=== PATIENT | female | born 2000 | race Hispanic/Latino ===

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

== ENCOUNTER 2024-07-05 00:33 | Emergency (ER) | payer OTHER, SELFPAY ==
--- OUTSIDE RECORDS SUMMARY | 2024-07-05 00:43 | XMS REPORT | Continuity of Care Document ---
Author Name Unknown Address [address] [place] [address] [facility] Address [address] [place] [address] Care Team Providers Care Section Housekeeper Name Role Phone Gwendolyn Kylah CADENA Primary Care Physician SHANNON CHEEMA Attending Clinician Unavailable Doctor Unassigned, [place] Attending Clinician U ROSITA Hartman Attending Clinician Shannon Schmidt Attending Clinician [phone] Rosita Kumar CNM Attending Clinician [phone] Visit, [facility] Nurse Attending Clinician UnaLIZBETH Hinojosa Attending Clinician UnavailLizbeth Allison MD Attending Clinician [phone] Franklin RIVERA, Kieran Horne Attending Clinician [phone] Thi RIVERA, Loni Attending Clinician [phone] DILMA HERNANDEZ Attending Clinician Unavailable Brock MITCHELL, Rosita Marie Attending Clinician [phone] Kirti WHJayson ARAUZ Attending Clinician + [phone], [facility] Attending Clinician Unavailab le JAYSON COTTO Attending Clinician Unavail able Doctor Unassigned, [place] Attending Clinician U navailable Elise Toussaint Attending Clinician [phone] ELISE NOGUERA Attending Clinician Unavailable LIZBETH JENKINS Admitting Clinician UnavailLizbeth Allison MD Admitting Clinician [phone] Payers Payer Name Policy Type Policy Number Effective Date Expirati on Date Source Problems Condition Name Condition Details Condition Category Status Onset Date Resolution Date Last Treatment Date Treating Clinician Comments Source Acute blood loss anemia Acute blood loss anemia Disease Active 8 00:00: 00 [facility] [place]cl[place] Disease Active 8 00:00: 00 [facility] Decreased platelet count Decreased platelet count Disease Active 8 00:00: 00 [facility] Papanicola ou smear of cervix with 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 4 LGSIL with +HPV, repeat 1 year see external records [facility] Overweight (BMI 25.0-29.9) Overweight (BMI 25.0-29.9) Disease Active 5 00:00: 00 [facility] No known active problems No known active problems Disease [facility] Anemia, Anemia, Disease Resolve d 8 00:00: 00 2024-01-11 00:00:00 2024-01-11 15:38:55 [facility] Obesity (BMI 30-39.9) Obesity (BMI 30-39.9) Disease Resolve d 2023-0 7-31 00:00: 00 2024-01-11 00:00:00 2024-01-11 15:38:18 [facility] (spontaneo us vaginal delivery) (spontaneo us vaginal delivery) Disease Resolve d 2023-0 8-02 00:00: 00 2023-12-21 00:00:00 2023-12-21 10:39:44 [facility] Single live Single live Disease Resolve d 2023-0 8-02 00:00: 00 2023-12-21 00:00:00 2023-12-21 10:39:45 [facility] Obstetrica l laceration Obstetrica l laceration Disease Resolve d 2023-0 8-02 00:00: 00 2023-12-21 00:00:00 2023-12-21 10:39:32 [facility] 40 weeks gestation of 40 weeks gestation of Disease Resolve d 2023-0 7-31 00:00: 00 2023-12-21 00:00:00 2023-12-21 10:39:41 [facility] Supervisio n of high risk in second trimester Supervisio n of high risk in second trimester Disease Resolve d 2023-0 5-14 00:00: 00 2023-12-21 00:00:00 2023-12-21 10:39:40 Overview: Formattin g of this note might be different from the original. External records:0 06/16/2023 NIPT low risk, MSAFP neg2023 LGSIL with +HPV, repeat 1 glucose 1 hour 113 [facility] Anemia of mother in , antepartum Anemia of mother in , antepartum Disease Resolve d 2023-0 5-08 00:00: 00 2023-12-21 00:00:00 2023-12-21 10:39:37 [facility] Rubella non-immune status, antepartum Rubella non-immune status, antepartum Disease Resolve d 09-05 00:00: 00 2023-12-21 00:00:00 2023-12-21 10:39:39 [facility] Obesity affecting in third trimester Obesity affecting in third trimester Disease Resolve d 5-07 00:00: 00 2023-12-21 00:00:00 2023-12-21 10:39:33 [facility] Uterine size-date discrepanc y in third trimester Uterine size-date discrepanc y in third trimester Disease Resolve d 6-18 00:00: 00 2023-11-14 00:00:00 2023-11-14 19:04:29 [facility] Allergies, Adverse Reactions, Alerts Allergy Name Allergy Type Status Severity Reaction(s) Onset Date Inactive Date Treating Clinician Comments Source NO KNOWN ALLERGIE S Drug Class Active [facility] Social History Social Habit Start Date Stop Date Quantity Comments Source ASSERTION 2023-03-08 00:00:00 [facility] Exposure to SARS-CoV-2 (event) Not sure [facility] intake 2024-01-11 00:00:00 2024-01-11 00:00:00 Lifetime non-drinker (finding) [facility] Tobacco use and exposure 2023-11-29 00:00:00 2023-11-29 00:00:00 Smokeless tobacco non-user [facility] History of Social function 2023-09-05 00:00:00 2023-09-05 00:00:00 [facility] Sex assigned at 2000 00:00:00 2000 00:00:00 [facility] Smoking Status Start Date Stop Date Source Never smoked tobacco [facility] Tobacco smoking consumption unknown [facility] Medications Ordered Medication Name Filled Medication Name Start Date Stop Date Current Medication? Ordering Clinician Indication Dosage Frequency Signature (SIG) Comments Components Source [id number] fum-folic 27 mg iron- 1 mg folic tablet 11-30 00:00: 00 Yes [id number] 1{tbl} Take 1 tablet by mouth in the morning. [facility] docusate 100 mg capsule 11-30 00:00: 00 Yes [id number] 200mg Take 2 capsules by mouth once daily as needed for Constipati on. [facility] ferrous sulfate 325 mg (65 mg iron) tablet 11-30 00:00: 00 Yes [id number] 325mg Take 1 tablet by mouth in the morning. [facility] ibuprofen 800 mg tablet 11-30 00:00: 00 Yes [id number] 800mg Take 1 tablet by mouth every 8 (eight) hours as needed (pain). Take with food or milk. [facility] rho(D) immune globulin (RHOPHYLAC) injection 300 mcg 11-29 17:37: 35 Yes 300ug [facility] ibuprofen (IBU) tablet 600 mg 11-29 17:37: 31 Yes 600mg 600 mg, Oral, Q6HPRN, Starting on Mon11/30/23 at 1237, Until Discontinu ed, Routine, Pain (scale 4-6) [facility] acetaminoph en (TYLENOL) tablet 650 mg 11-29 17:37: 31 Yes 650mg [facility] diphenhydrA MINE (BENADRYL) tablet 25 mg 11-29 17:37: 31 Yes 25mg [facility] ondansetron (ZOFRAN (PF)) injection 4 mg 11-29 17:37: 31 Yes 4mg [facility] simethicone (GAS RELIEF (SIMETHICON E)) chewable tablet 160 mg 11-29 17:37: 31 Yes 160mg [facility] docusate (COLACE) capsule 200 mg 11-29 17:37: 31 Yes 200mg 200 mg, Oral, QDAILYPRN, Starting on Mon11/30/23 at 1237, Until Discontinu ed, Routine, Constipati on [facility] magnesium hydroxide (MILK OF MAGNESIA) 400 mg/5 mL suspension 30 mL 11-29 17:37: 31 Yes 30mL [facility] benzocaine- menthol (DERMOPLAST ) 20-0.5 % topical spray 11-29 17:37: 31 Yes Topical, PRN, Starting on Mon11/30/23 at 1237, Until Discontinu ed, Routine, Perineum discomfort [facility] ondansetron (ZOFRAN (PF)) injection 4 mg 11-29 13:00: 00 11-29 12:41 :00 No 4mg 4 mg, Slow IV Push, ONCE, On Mon11/30/23 at 0800, For 1 dose, Doses of ondansetro n 16 mg and above need to be administer ed via IV piggyback. For Dose >=24mg ECG monitoring is advisable. [facility] oxytocin (PITOCIN) 30 units in NS 500 mL IV infusion 11-29 11:10: 54 11-29 17:37 :34 No 2mU/min at 2-40 mL/hr, IV Infusion, TITRATE, Starting on Mon11/30/23 at 0610, Until Kiersten 11/30/23 at 1237, MARIAM [facility] ropivacaine 0.2 % (NAROPIN (PF)) epidural infusion 11-29 05:12: 00 11-29 15:34 :19 No Epidural, CONTINUOUS PRN, Starting on Mon11/30/23 at 0012, Until Kiersten 11/30/23 at 1034, Routine, Intra-op [facility] lidocaine-e pinephrine (XYLOCAINE W/EPINEPHRI NE) 1.5 %-1:200,000 injection 11-29 05:10: 00 11-29 15:34 :19 No Epidural, ONCE INTRA PROCEDURE, Starting on Mon11/30/23 at 0010, Until Mon11/30/23 at 1034, Routine, Intra-op [facility] morphine (2 mg/mL) injection 4 mg 11-28 21:45: 00 11-28 20:57 :00 No 4mg 4 mg, Slow IV Push, ONCE, 1 dose, On Mon11/29/23 at 1645, Routine [facility] sodium citrate-cit noni acid (BICITRA) 500-334 mg/5 mL solution 30 mL 11-28 19:27: 21 11-29 04:47 :00 No 30mL 30 mL, Oral, PRE-PROCED URE ONCE, 1 dose, Starting on Mon11/29/23 at 1427, Until Mon11/29/23 at 2347, Routine, Surgery/Pr ocedure [facility] lactated ringers IV infusion 500 mL 11-28 19:25: 41 11-29 17:37 :34 No 500mL at 999 mL/hr, 500 mL, IV Infusion, PRN - SEE INSTRUCTIO NS, Starting on Mon11/29/23 at 1425, Until Kiersten 11/30/23 at 1237, Routine [facility] [id number] IV infusion 1,000 mL 11-28 19:25: 41 11-29 17:37 :34 No 1000mL at 1-125 mL/hr, IV Infusion, TITRATE, Starting on Mon11/29/23 at 1425, Until Kiersten 11/30/23 at 1237, Routine [facility] fluconazole (DIFLUCAN) 150 mg tablet 09-06 00:00: 00 09-07 04:59 :00 No [id number] 150mg Take 1 tablet by mouth once now for 1 dose. [facility] Iron Fum & P-FA-Vit B & C No.9 (INTEGRA PLUS) 125 mg iron- 1 mg Cap 09-05 00:00: 00 11-30 00:00 :00 No [id number] 1{capsu le} Take 1 capsule by mouth in the morning. [facility] metronidazo le 0.75 % (37.5 mg/5 gram) vaginal gel 07-19 00:00: 00 Yes 1(37.5m g/5 gram) Ernseto Cevallos metronidazo le 500 mg tablet 07-16 00:00: 00 Yes 1mg Ernesto Cevallos TAKE 1 TABLET TWICE DAILY. 2023-0 5-16 00:00: 00 09-07 00:00 :00 No 100 Ernesto Cevallos No known medications No Un masha [facility] Immunizations Ordered Immunization Name Filled Immunization Name Date Status Comments Source TDAP 2023-09-05 00:00:00 Completed [facility] Influenza Virus Vaccine Quad .5 mL IM 6+ MO (FLUZONE/FLULAVAL/FL UARIX) 2019-02-28 00:00:00 Completed Meningococcal B, OMV 2019-02-28 00:00:00 Completed Influenza Virus Vaccine Quad .5 mL IM 6+ MO (FLUZONE/FLULAVAL/FL UARIX) 2019-02-28 00:00:00 Completed Meningococcal B, OMV 2019-02-28 00:00:00 Completed Influenza Virus Vaccine Quad .5 mL IM 6+ MO (FLUZONE/FLULAVAL/FL UARIX) 2018-02-28 00:00:00 Completed Meningococcal Polysaccharide (groups A, C, Y and W-135) conjugate vaccine (MCV4P) 2018-02-28 00:00:00 Completed Influenza Virus Vaccine Quad .5 mL IM 6+ MO (FLUZONE/FLULAVAL/FL UARIX) 2018-02-28 00:00:00 Completed Meningococcal Polysaccharide (groups A, C, Y and W-135) conjugate vaccine (MCV4P) 2018-02-28 00:00:00 Completed Influenza Virus Vaccine Quad .5 mL IM 6+ MO (FLUZONE/FLULAVAL/FL UARIX) 2017-02-08 00:00:00 Completed Influenza Virus Vaccine Quad .5 mL IM 6+ MO (FLUZONE/FLULAVAL/FL UARIX) 2017-02-08 00:00:00 Completed HPV9 2016-11-23 00:00:00 Completed HPV9 2016-11-23 00:00:00 Completed Influenza Virus Vaccine Quad .5 mL IM 6+ MO (FLUZONE/FLULAVAL/FL UARIX) 2016-02-17 00:00:00 Completed HPV9 2016-02-17 00:00:00 Completed Influenza Virus Vaccine Quad .5 mL IM 6+ MO (FLUZONE/FLULAVAL/FL UARIX) 2016-02-17 00:00:00 Completed HPV9 2016-02-17 00:00:00 Completed Influenza Virus Vaccine Quad .5 mL IM 6+ MO (FLUZONE/FLULAVAL/FL UARIX) 2015-02-27 00:00:00 Completed Influenza Virus Vaccine Quad .5 mL IM 6+ MO (FLUZONE/FLULAVAL/FL UARIX) 2015-02-27 00:00:00 Completed Flu Whole Virus 2014-01-29 00:00:00 Completed Flu Whole Virus 2014-01-29 00:00:00 Completed TDAP 2013-11-20 00:00:00 Completed Meningococcal Polysaccharide (groups A, C, Y and W-135) conjugate vaccine (MCV4P) 2013-11-20 00:00:00 Completed TDAP 2013-11-20 00:00:00 Completed [facility] Meningococcal Polysaccharide (groups A, C, Y and W-135) conjugate vaccine (MCV4P) 2013-11-20 00:00:00 Completed Varicella (varivax)(chicken pox) 2012-02-29 00:00:00 Completed Varicella (varivax)(chicken pox) 2012-02-29 00:00:00 Completed Influenza, split virus, trivalent, PF (AFLURIA/FLUARIX/FLU LAVAL/FLUZONE) 2011-02-17 00:00:00 Completed Influenza, split virus, trivalent, PF (AFLURIA/FLUARIX/FLU LAVAL/FLUZONE) 2011-02-17 00:00:00 Completed Influenza Virus Vaccine - Whole 2007-05-22 00:00:00 Completed Influenza Virus Vaccine - Whole 2007-05-22 00:00:00 Completed Influenza Virus Vaccine - Whole 2007-04-20 00:00:00 Completed Influenza Virus Vaccine - Whole 2007-04-20 00:00:00 Completed DTaP, Unspecified Formulation 2005-11-08 00:00:00 Completed HEPATITIS A 2005-11-08 00:00:00 Completed MMR 2005-11-08 00:00:00 Completed IPV 2005-11-08 00:00:00 Completed DTaP, Unspecified Formulation 2005-11-08 00:00:00 Completed HEPATITIS A 2005-11-08 00:00:00 Completed MMR 2005-11-08 00:00:00 Completed IPV 2005-11-08 00:00:00 Completed Pneumococcal 7 Conjugate, PCV7 (Prevnar7) 2004-12-22 00:00:00 Completed Pneumococcal 7 Conjugate, PCV7 (Prevnar7) 2004-12-22 00:00:00 Completed HEPATITIS A 2004-12-16 00:00:00 Completed HEPATITIS A 2004-12-16 00:00:00 Completed DTaP, Unspecified Formulation 2003-01-06 00:00:00 Completed DTaP, Unspecified Formulation 2003-01-06 00:00:00 Completed HIB 4 Dose Schedule 2002-10-09 00:00:00 Completed MMR 2002-10-09 00:00:00 Completed Varicella (varivax)(chicken pox) 2002-10-09 00:00:00 Completed HIB 4 Dose Schedule 2002-10-09 00:00:00 Completed MMR 2002-10-09 00:00:00 Completed Varicella (varivax)(chicken pox) 2002-10-09 00:00:00 Completed IPV 2002-08-28 00:00:00 Completed IPV 2002-08-28 00:00:00 Completed DTaP, Unspecified Formulation 2002-04-15 00:00:00 Completed Hep B, Adol or Pedi Dosage 2002-04-15 00:00:00 Completed HIB 4 Dose Schedule 2002-04-15 00:00:00 Completed DTaP, Unspecified Formulation 2002-04-15 00:00:00 Completed Hep B, Adol or Pedi Dosage 2002-04-15 00:00:00 Completed HIB 4 Dose Schedule 2002-04-15 00:00:00 Completed DTaP, Unspecified Formulation 2002-02-12 00:00:00 Completed HIB 4 Dose Schedule 2002-02-12 00:00:00 Completed IPV 2002-02-12 00:00:00 Completed DTaP, Unspecified Formulation 2002-02-12 00:00:00 Completed HIB 4 Dose Schedule 2002-02-12 00:00:00 Completed IPV 2002-02-12 00:00:00 Completed DTaP, Unspecified Formulation 2001 00:00:00 Completed Hep B, Adol or Pedi Dosage 2001 00:00:00 Completed HIB 4 Dose Schedule 2001 00:00:00 Completed IPV 2001 00:00:00 Completed DTaP, Unspecified Formulation 2001 00:00:00 Completed Hep B, Adol or Pedi Dosage 2001 00:00:00 Completed HIB 4 Dose Schedule 2001 00:00:00 Completed IPV 2001 00:00:00 Completed Hep B, Adol or Pedi Dosage 2001 00:00:00 Completed Hep B, Adol or Pedi Dosage 2001 00:00:00 Completed Varicella (varivax)(chicken pox) Unknown Completed [facility] TDAP Unknown Completed [facility] DTaP, Unspecified Formulation Unknown Completed [facility] Influenza Virus Vaccine Quad .5 mL IM 6+ MO (FLUZONE/FLULAVAL/FL UARIX) Unknown Completed [facility] Influenza Virus Vaccine - Whole Unknown Completed [facility] Flu Trivalent Unknown Completed [facility] Flu Whole Virus Unknown Completed [facility] TDAP Unknown Completed [facility] HEPATITIS A Unknown Completed [facility] Hep B, Adol or Pedi Dosage Unknown Completed [facility] HIB 4 Dose Schedule Unknown Completed [facility] HPV9 Unknown Completed [facility] Meningococcal Polysaccharide (groups A, C, Y and W-135) conjugate vaccine (MCV4P) Unknown Completed [facility] Meningococcal B, OMV Unknown Completed [facility] MMR Unknown Completed [facility] Pneumococcal 7 Conjugate, PCV7 (Prevnar7) Unknown Completed [facility] IPV Unknown Completed [facility] Varicella (varivax)(chicken pox) Unknown Completed [facility] TDAP Unknown Completed [facility] DTaP, Unspecified Formulation Unknown Completed [facility] Influenza Virus Vaccine Quad .5 mL IM 6+ MO (FLUZONE/FLULAVAL/FL UARIX) Unknown Completed [facility] Influenza Virus Vaccine - Whole Unknown Completed [facility] Flu Trivalent Unknown Completed [facility] Flu Whole Virus Unknown Completed [facility] HEPATITIS A Unknown Completed [facility] Hep B, Adol or Pedi Dosage Unknown Completed [facility] HIB 4 Dose Schedule Unknown Completed [facility] HPV9 Unknown Completed [facility] Meningococcal Polysaccharide (groups A, C, Y and W-135) conjugate vaccine (MCV4P) Unknown Completed [facility] Meningococcal B, OMV Unknown Completed [facility] MMR Unknown Completed [facility] Pneumococcal 7 Conjugate, PCV7 (Prevnar7) Unknown Completed [facility] IPV Unknown Completed [facility] Varicella (varivax)(chicken pox) Unknown Completed [facility] TDAP Unknown Completed [facility] DTaP, Unspecified Formulation Unknown Completed [facility] Influenza Virus Vaccine Quad .5 mL IM 6+ MO (FLUZONE/FLULAVAL/FL UARIX) Unknown Completed [facility] Influenza Virus Vaccine - Whole Unknown Completed [facility] Influenza, split virus, trivalent, PF (AFLURIA/FLUARIX/FLU LAVAL/FLUZONE) Unknown Completed [facility] Flu Whole Virus Unknown Completed [facility] HEPATITIS A Unknown Completed [facility] Hep B, Adol or Pedi Dosage Unknown Completed [facility] HIB 4 Dose Schedule Unknown Completed [facility] HPV9 Unknown Completed [facility] Meningococcal Polysaccharide (groups A, C, Y and W-135) conjugate vaccine (MCV4P) Unknown Completed [facility] Meningococcal B, OMV Unknown Completed [facility] MMR Unknown Completed [facility] Pneumococcal 7 Conjugate, PCV7 (Prevnar7) Unknown Completed [facility] IPV Unknown Completed [facility] Varicella (varivax)(chicken pox) Unknown Completed [facility] TDAP Unknown Completed [facility] DTaP, Unspecified Formulation Unknown Completed [facility] Influenza Virus Vaccine Quad .5 mL IM 6+ MO (FLUZONE/FLULAVAL/FL UARIX) Unknown Completed [facility] Influenza Virus Vaccine - Whole Unknown Completed [facility] Influenza, split virus, trivalent, PF (AFLURIA/FLUARIX/FLU LAVAL/FLUZONE) Unknown Completed [facility] Flu Whole Virus Unknown Completed [facility] HEPATITIS A Unknown Completed [facility] Hep B, Adol or Pedi Dosage Unknown Completed [facility] HIB 4 Dose Schedule Unknown Completed [facility] HPV9 Unknown Completed [facility] Meningococcal Polysaccharide (groups A, C, Y and W-135) conjugate vaccine (MCV4P) Unknown Completed [facility] Meningococcal B, OMV Unknown Completed [facility] MMR Unknown Completed [facility] Pneumococcal 7 Conjugate, PCV7 (Prevnar7) Unknown Completed [facility] IPV Unknown Completed [facility] Varicella (varivax)(chicken pox) Unknown Completed [facility] TDAP Unknown Completed [facility] DTaP, Unspecified Formulation Unknown Completed [facility] Influenza Virus Vaccine Quad .5 mL IM 6+ MO (FLUZONE/FLULAVAL/FL UARIX) Unknown Completed [facility] Influenza Virus Vaccine - Whole Unknown Completed [facility] Flu Trivalent Unknown Completed [facility] Flu Whole Virus Unknown Completed [facility] HEPATITIS A Unknown Completed [facility] Hep B, Adol or Pedi Dosage Unknown Completed [facility] HIB 4 Dose Schedule Unknown Completed [facility] HPV9 Unknown Completed [facility] Meningococcal Polysaccharide (groups A, C, Y and W-135) conjugate vaccine (MCV4P) Unknown Completed [facility] Meningococcal B, OMV Unknown Completed [facility] MMR Unknown Completed [facility] Pneumococcal 7 Conjugate, PCV7 (Prevnar7) Unknown Completed [facility] IPV Unknown Completed [facility] Varicella (varivax)(chicken pox) Unknown Completed [facility] Flu Trivalent Unknown Completed [facility] Flu Whole Virus Unknown Completed [facility] Meningococcal B, OMV Unknown Completed [facility] Pneumococcal 7 Conjugate, PCV7 (Prevnar7) Unknown Completed [facility] TDAP Unknown Completed [facility] DTaP, Unspecified Formulation Unknown Completed [facility] Influenza Virus Vaccine Quad .5 mL IM 6+ MO (FLUZONE/FLULAVAL/FL UARIX) Unknown Completed [facility] Influenza Virus Vaccine - Whole Unknown Completed [facility] HEPATITIS A Unknown Completed [facility] Hep B, Adol or Pedi Dosage Unknown Completed [facility] HIB 4 Dose Schedule Unknown Completed [facility] HPV9 Unknown Completed [facility] Meningococcal Polysaccharide (groups A, C, Y and W-135) conjugate vaccine (MCV4P) Unknown Completed [facility] MMR Unknown Completed [facility] IPV Unknown Completed [facility] Varicella (varivax)(chicken pox) Unknown Completed [facility] TDAP Unknown Completed [facility] DTaP, Unspecified Formulation Unknown Completed [facility] Influenza Virus Vaccine Quad .5 mL IM 6+ MO (FLUZONE/FLULAVAL/FL UARIX) Unknown Completed [facility] Influenza Virus Vaccine - Whole Unknown Completed [facility] Flu Trivalent Unknown Completed [facility] Flu Whole Virus Unknown Completed [facility] HEPATITIS A Unknown Completed [facility] Hep B, Adol or Pedi Dosage Unknown Completed [facility] HIB 4 Dose Schedule Unknown Completed [facility] HPV9 Unknown Completed [facility] Meningococcal Polysaccharide (groups A, C, Y and W-135) conjugate vaccine (MCV4P) Unknown Completed [facility] Meningococcal B, OMV Unknown Completed [facility] MMR Unknown Completed [facility] Pneumococcal 7 Conjugate, PCV7 (Prevnar7) Unknown Completed [facility] IPV Unknown Completed [facility] Varicella (varivax)(chicken pox) Unknown Completed [facility] TDAP Unknown Completed [facility] DTaP, Unspecified Formulation Unknown Completed [facility] Influenza Virus Vaccine Quad .5 mL IM 6+ MO (FLUZONE/FLULAVAL/FL UARIX) Unknown Completed [facility] Influenza Virus Vaccine - Whole Unknown Completed [facility] Flu Trivalent Unknown Completed [facility] Flu Whole Virus Unknown Completed [facility] HEPATITIS A Unknown Completed [facility] Hep B, Adol or Pedi Dosage Unknown Completed [facility] HIB 4 Dose Schedule Unknown Completed [facility] HPV9 Unknown Completed [facility] Meningococcal Polysaccharide (groups A, C, Y and W-135) conjugate vaccine (MCV4P) Unknown Completed [facility] Meningococcal B, OMV Unknown Completed [facility] MMR Unknown Completed [facility] Pneumococcal 7 Conjugate, PCV7 (Prevnar7) Unknown Completed [facility] IPV Unknown Completed [facility] Varicella (varivax)(chicken pox) Unknown Completed [facility] TDAP Unknown Completed [facility] DTaP, Unspecified Formulation Unknown Completed [facility] Influenza Virus Vaccine Quad .5 mL IM 6+ MO (FLUZONE/FLULAVAL/FL UARIX) Unknown Completed [facility] Influenza Virus Vaccine - Whole Unknown Completed [facility] Flu Trivalent Unknown Completed [facility] Flu Whole Virus Unknown Completed [facility] HEPATITIS A Unknown Completed [facility] Hep B, Adol or Pedi Dosage Unknown Completed [facility] HIB 4 Dose Schedule Unknown Completed [facility] HPV9 Unknown Completed [facility] Meningococcal Polysaccharide (groups A, C, Y and W-135) conjugate vaccine (MCV4P) Unknown Completed [facility] Meningococcal B, OMV Unknown Completed [facility] MMR Unknown Completed [facility] Pneumococcal 7 Conjugate, PCV7 (Prevnar7) Unknown Completed [facility] IPV Unknown Completed [facility] Varicella (varivax)(chicken pox) Unknown Completed [facility] TDAP Unknown Completed [facility] DTaP, Unspecified Formulation Unknown Completed [facility] Influenza Virus Vaccine Quad .5 mL IM 6+ MO (FLUZONE/FLULAVAL/FL UARIX) Unknown Completed [facility] Influenza Virus Vaccine - Whole Unknown Completed [facility] Flu Trivalent Unknown Completed [facility] Flu Whole Virus Unknown Completed [facility] HEPATITIS A Unknown Completed [facility] Hep B, Adol or Pedi Dosage Unknown Completed [facility] HIB 4 Dose Schedule Unknown Completed [facility] HPV9 Unknown Completed [facility] Meningococcal Polysaccharide (groups A, C, Y and W-135) conjugate vaccine (MCV4P) Unknown Completed [facility] Meningococcal B, OMV Unknown Completed [facility] MMR Unknown Completed [facility] Pneumococcal 7 Conjugate, PCV7 (Prevnar7) Unknown Completed [facility] IPV Unknown Completed [facility] Varicella (varivax)(chicken pox) Unknown Completed [facility] TDAP Unknown Completed [facility] DTaP, Unspecified Formulation Unknown Completed [facility] Influenza Virus Vaccine Quad .5 mL IM 6+ MO (FLUZONE/FLULAVAL/FL UARIX) Unknown Completed [facility] Influenza Virus Vaccine - Whole Unknown Completed [facility] Flu Trivalent Unknown Completed [facility] Flu Whole Virus Unknown Completed [facility] HEPATITIS A Unknown Completed [facility] Hep B, Adol or Pedi Dosage Unknown Completed [facility] HIB 4 Dose Schedule Unknown Completed [facility] HPV9 Unknown Completed [facility] Meningococcal Polysaccharide (groups A, C, Y and W-135) conjugate vaccine (MCV4P) Unknown Completed [facility] Meningococcal B, OMV Unknown Completed [facility] MMR Unknown Completed [facility] Pneumococcal 7 Conjugate, PCV7 (Prevnar7) Unknown Completed [facility] IPV Unknown Completed [facility] Varicella (varivax)(chicken pox) Unknown Completed [facility] TDAP Unknown Completed [facility] DTaP, Unspecified Formulation Unknown Completed [facility] Influenza Virus Vaccine Quad .5 mL IM 6+ MO (FLUZONE/FLULAVAL/FL UARIX) Unknown Completed [facility] Influenza Virus Vaccine - Whole Unknown Completed [facility] Flu Trivalent Unknown Completed [facility] Flu Whole Virus Unknown Completed [facility] HEPATITIS A Unknown Completed [facility] Hep B, Adol or Pedi Dosage Unknown Completed [facility] HIB 4 Dose Schedule Unknown Completed [facility] HPV9 Unknown Completed [facility] Meningococcal Polysaccharide (groups A, C, Y and W-135) conjugate vaccine (MCV4P) Unknown Completed [facility] Meningococcal B, OMV Unknown Completed [facility] MMR Unknown Completed [facility] Pneumococcal 7 Conjugate, PCV7 (Prevnar7) Unknown Completed [facility] IPV Unknown Completed [facility] Varicella (varivax)(chicken pox) Unknown Completed [facility] TDAP Unknown Completed [facility] TDAP Unknown Completed [facility] DTaP, Unspecified Formulation Unknown Completed [facility] Influenza Virus Vaccine Quad .5 mL IM 6+ MO (FLUZONE/FLULAVAL/FL UARIX) Unknown Completed [facility] Influenza Virus Vaccine - Whole Unknown Completed [facility] Flu Trivalent Unknown Completed [facility] Flu Whole Virus Unknown Completed [facility] HEPATITIS A Unknown Completed [facility] Hep B, Adol or Pedi Dosage Unknown Completed [facility] HIB 4 Dose Schedule Unknown Completed [facility] HPV9 Unknown Completed [facility] Meningococcal Polysaccharide (groups A, C, Y and W-135) conjugate vaccine (MCV4P) Unknown Completed [facility] Meningococcal B, OMV Unknown Completed [facility] MMR Unknown Completed [facility] Pneumococcal 7 Conjugate, PCV7 (Prevnar7) Unknown Completed [facility] IPV Unknown Completed [facility] Varicella (varivax)(chicken pox) Unknown Completed [facility] TDAP Unknown Completed [facility] DTaP, Unspecified Formulation Unknown Completed [facility] Influenza Virus Vaccine Quad .5 mL IM 6+ MO (FLUZONE/FLULAVAL/FL UARIX) Unknown Completed [facility] Influenza Virus Vaccine - Whole Unknown Completed [facility] Flu Trivalent Unknown Completed [facility] Flu Whole Virus Unknown Completed [facility] HEPATITIS A Unknown Completed [facility] Hep B, Adol or Pedi Dosage Unknown Completed [facility] HIB 4 Dose Schedule Unknown Completed [facility] HPV9 Unknown Completed [facility] Meningococcal Polysaccharide (groups A, C, Y and W-135) conjugate vaccine (MCV4P) Unknown Completed [facility] Meningococcal B, OMV Unknown Completed [facility] MMR Unknown Completed [facility] Pneumococcal 7 Conjugate, PCV7 (Prevnar7) Unknown Completed [facility] IPV Unknown Completed [facility] Varicella (varivax)(chicken pox) Unknown Completed [facility] TDAP Unknown Completed [facility] TDAP Unknown Completed [facility] TDAP Unknown Completed [facility] DTaP, Unspecified Formulation Unknown Completed [facility] Influenza Virus Vaccine Quad .5 mL IM 6+ MO (FLUZONE/FLULAVAL/FL UARIX) Unknown Completed [facility] Influenza Virus Vaccine - Whole Unknown Completed [facility] Flu Trivalent Unknown Completed [facility] Flu Whole Virus Unknown Completed [facility] HEPATITIS A Unknown Completed [facility] Hep B, Adol or Pedi Dosage Unknown Completed [facility] HIB 4 Dose Schedule Unknown Completed [facility] HPV9 Unknown Completed [facility] Meningococcal Polysaccharide (groups A, C, Y and W-135) conjugate vaccine (MCV4P) Unknown Completed [facility] Meningococcal B, OMV Unknown Completed [facility] MMR Unknown Completed [facility] Pneumococcal 7 Conjugate, PCV7 (Prevnar7) Unknown Completed [facility] IPV Unknown Completed [facility] Varicella (varivax)(chicken pox) Unknown Completed [facility] TDAP Unknown Completed [facility] DTaP, Unspecified Formulation Unknown Completed [facility] Influenza Virus Vaccine Quad .5 mL IM 6+ MO (FLUZONE/FLULAVAL/FL UARIX) Unknown Completed [facility] Influenza Virus Vaccine - Whole Unknown Completed [facility] Flu Trivalent Unknown Completed [facility] Flu Whole Virus Unknown Completed [facility] HEPATITIS A Unknown Completed [facility] Hep B, Adol or Pedi Dosage Unknown Completed [facility] HIB 4 Dose Schedule Unknown Completed [facility] HPV9 Unknown Completed [facility] Meningococcal Polysaccharide (groups A, C, Y and W-135) conjugate vaccine (MCV4P) Unknown Completed [facility] Meningococcal B, OMV Unknown Completed [facility] MMR Unknown Completed [facility] Pneumococcal 7 Conjugate, PCV7 (Prevnar7) Unknown Completed [facility] IPV Unknown Completed [facility] Vital Signs Vital Name Observation Time Observation Value Comments S ource Systolic blood pressure 2024-01-11 18:14:00 102 mm[Hg] [facility] Diastolic blood pressure 2024-01-11 18:14:00 69 mm[Hg] [facility] Heart rate 2024-01-11 18:14:00 83 /min [facility] Body temperature 2024-01-11 18:14:00 36.33 Elli [facility] Respiratory rate 2024-01-11 18:14:00 16 /min [facility] Body height 2024-01-11 18:14:00 160 cm [facility] Body weight 2024-01-11 18:14:00 65.12 kg [facility] BMI 2024-01-11 18:14:00 25.43 kg/m2 [facility] Systolic blood pressure 2023-12-21 15:40:00 123 mm[Hg] [facility] Diastolic blood pressure 2023-12-21 15:40:00 84 mm[Hg] [facility] Heart rate 2023-12-21 15:40:00 88 /min [facility] Body temperature 2023-12-21 15:40:00 36.5 Elli [facility] Respiratory rate 2023-12-21 15:40:00 16 /min [facility] Body height 2023-12-21 15:40:00 160 cm [facility] Body weight 2023-12-21 15:40:00 66.367 kg [facility] BMI 2023-12-21 15:40:00 25.92 kg/m2 [facility] Systolic blood pressure 2023-12-08 14:07:00 127 mm[Hg] [facility] Diastolic blood pressure 2023-12-08 14:07:00 95 mm[Hg] [facility] Heart rate 2023-12-08 14:07:00 105 /min [facility] Body temperature 2023-12-08 14:03:00 36.17 Elli [facility] Respiratory rate 2023-12-08 14:03:00 18 /min [facility] Body height 2023-12-08 14:03:00 160 cm [facility] Body weight 2023-12-08 14:03:00 70.336 kg [facility] BMI 2023-12-08 14:03:00 27.47 kg/m2 [facility] Systolic blood pressure 2023-12-05 15:03:00 144 mm[Hg] [facility] Diastolic blood pressure 2023-12-05 15:03:00 106 mm[Hg] [facility] Heart rate 2023-12-05 15:03:00 100 /min [facility] Body temperature 2023-12-05 15:03:00 37.11 Elli [facility] Respiratory rate 2023-12-05 15:03:00 17 /min [facility] Body height 2023-12-05 15:03:00 160 cm [facility] Body weight 2023-12-05 15:03:00 71.396 kg [facility] BMI 2023-12-05 15:03:00 27.88 kg/m2 [facility] Systolic blood pressure 2023-12-01 12:41:00 132 mm[Hg] [facility] Diastolic blood pressure 2023-12-01 12:41:00 83 mm[Hg] [facility] Heart rate 2023-12-01 12:41:00 77 /min [facility] Body temperature 2023-12-01 12:41:00 36.78 Elli [facility] Respiratory rate 2023-12-01 12:41:00 18 /min [facility] Oxygen saturation in Arterial blood by Pulse oximetry 2023-12-01 12:41:00 96 /min [facility] Body height 2023-11-29 21:31:00 160 cm [facility] Body weight 2023-11-29 21:31:00 78 kg [facility] BMI 2023-11-29 21:31:00 30.46 kg/m2 [facility] Systolic blood pressure 2023-11-21 15:46:00 110 mm[Hg] [facility] Diastolic blood pressure 2023-11-21 15:46:00 72 mm[Hg] [facility] Heart rate 2023-11-21 15:46:00 74 /min [facility] Body temperature 2023-11-21 15:46:00 36.06 Elli [facility] Respiratory rate 2023-11-21 15:46:00 16 /min [facility] Body height 2023-11-21 15:46:00 160 cm [facility] Body weight 2023-11-21 15:46:00 77.707 kg [facility] BMI 2023-11-21 15:46:00 30.35 kg/m2 [facility] Systolic blood pressure 2023-11-14 14:46:00 115 mm[Hg] [facility] Diastolic blood pressure 2023-11-14 14:46:00 70 mm[Hg] [facility] Heart rate 2023-11-14 14:46:00 69 /min [facility] Body temperature 2023-11-14 14:46:00 36.61 Elli [facility] Respiratory rate 2023-11-14 14:46:00 18 /min [facility] Body height 2023-11-14 14:46:00 160 cm [facility] Body weight 2023-11-14 14:46:00 74.957 kg [facility] BMI 2023-11-14 14:46:00 29.27 kg/m2 [facility] Systolic blood pressure 2023-10-31 18:22:00 118 mm[Hg] [facility] Diastolic blood pressure 2023-10-31 18:22:00 72 mm[Hg] [facility] Heart rate 2023-10-31 18:22:00 90 /min [facility] Body temperature 2023-10-31 18:22:00 36.56 Elli [facility] Respiratory rate 2023-10-31 18:22:00 18 /min [facility] Body height 2023-10-31 18:22:00 160 cm [facility] Body weight 2023-10-31 18:22:00 70.988 kg [facility] BMI 2023-10-31 18:22:00 27.72 kg/m2 [facility] Systolic blood pressure 2023-10-17 15:28:00 106 mm[Hg] [facility] Diastolic blood pressure 2023-10-17 15:28:00 65 mm[Hg] [facility] Heart rate 2023-10-17 15:28:00 85 /min [facility] Body temperature 2023-10-17 15:28:00 36.28 Elli [facility] Respiratory rate 2023-10-17 15:28:00 18 /min [facility] Body height 2023-10-17 15:28:00 160 cm [facility] Body weight 2023-10-17 15:28:00 71.3 kg [facility] BMI 2023-10-17 15:28:00 27.84 kg/m2 [facility] Systolic blood pressure 2023-10-05 15:17:00 103 mm[Hg] [facility] Diastolic blood pressure 2023-10-05 15:17:00 64 mm[Hg] [facility] Heart rate 2023-10-05 15:17:00 87 /min [facility] Body temperature 2023-10-05 15:17:00 36.56 Elli [facility] Respiratory rate 2023-10-05 15:17:00 18 /min [facility] Body height 2023-10-05 15:17:00 160 cm [facility] Body weight 2023-10-05 15:17:00 68.765 kg [facility] BMI 2023-10-05 15:17:00 26.85 kg/m2 [facility] Systolic blood pressure 2023-09-19 20:39:00 110 mm[Hg] [facility] Diastolic blood pressure 2023-09-19 20:39:00 72 mm[Hg] [facility] Heart rate 2023-09-19 20:39:00 107 /min [facility] Body temperature 2023-09-19 20:39:00 36.5 Elli [facility] Respiratory rate 2023-09-19 20:39:00 18 /min [facility] Body height 2023-09-19 20:39:00 160 cm [facility] Body weight 2023-09-19 20:39:00 65.828 kg [facility] BMI 2023-09-19 20:39:00 25.71 kg/m2 [facility] Systolic blood pressure 2023-09-05 13:40:00 110 mm[Hg] [facility] Diastolic blood pressure 2023-09-05 13:40:00 71 mm[Hg] [facility] Heart rate 2023-09-05 13:40:00 80 /min [facility] Body temperature 2023-09-05 13:40:00 36.56 Elli [facility] Respiratory rate 2023-09-05 13:40:00 18 /min [facility] Body height 2023-09-05 13:40:00 160 cm [facility] Body weight 2023-09-05 13:40:00 64.411 kg [facility] BMI 2023-09-05 13:40:00 25.15 kg/m2 [facility] Systolic blood pressure 2020-09-03 04:30:00 109 mm[Hg] [facility] Diastolic blood pressure 2020-09-03 04:30:00 61 mm[Hg] [facility] Heart rate 2020-09-03 04:30:00 80 /min [facility] Respiratory rate 2020-09-03 04:30:00 18 /min [facility] Oxygen saturation in Arterial blood by Pulse oximetry 2020-09-03 04:30:00 98 /min [facility] Body temperature 2020-09-03 03:17:00 37.22 Elli [facility] Body weight 2020-09-03 03:17:00 54.432 kg [facility] BP Systolic 2023-09-08 16:12:00 110 mm[Hg] Step hen F Roger BP Diastolic 2023-09-08 16:12:00 69 mm[Hg] Raj phen Aidee Cevallos Weight Measured 2023-09-08 16:12:00 143.40 pounds Ernesto Cevallos Height Measured 2023-09-08 16:12:00 62.30 inches Ernesto F Roger Body Temperature 2023-09-08 16:12:00 Ernesto F Roger Heart Rate 2023-09-08 16:12:00 88.00 /min Vera en F Roger Respiratory Rate 2023-09-08 16:12:00 Ernestoronnell Cevallos BP Systolic 2023-08-09 14:23:00 98 mm[Hg] Step hen F Roger BP Diastolic 2023-08-09 14:23:00 66 mm[Hg] Raj phen F Roger Weight Measured 2023-08-09 14:23:00 136.00 pounds Ernesto F Roger Height Measured 2023-08-09 14:23:00 62.30 inches Ernesto F Roger Body Temperature 2023-08-09 14:23:00 98.40 degrees Ernesto F Roger Heart Rate 2023-08-09 14:23:00 80.00 /min Vera en F Roger Respiratory Rate 2023-08-09 14:23:00 Ernesto F Roger BP Systolic 2023-07-20 13:54:00 103 mm[Hg] Step hen F Roger BP Diastolic 2023-07-20 13:54:00 70 mm[Hg] Raj phen F Roger Weight Measured 2023-07-20 13:54:00 129.80 pounds Ernesto F Roger Height Measured 2023-07-20 13:54:00 62.30 inches Ernesto F Roger Body Temperature 2023-07-20 13:54:00 98.10 degrees Ernesto F Roger Heart Rate 2023-07-20 13:54:00 89.00 /min Vera en F Roger Respiratory Rate 2023-07-20 13:54:00 18.00 /min Ernesto F Roger BP Systolic 2023-07-13 15:08:00 107 mm[Hg] Step hen F Roger BP Diastolic 2023-07-13 15:08:00 72 mm[Hg] Raj phen F Roger Weight Measured 2023-07-13 15:08:00 128.40 pounds Ernesto F Roger Height Measured 2023-07-13 15:08:00 62.30 inches Ernesto F Roger Body Temperature 2023-07-13 15:08:00 98.10 degrees Ernesto F Roger Heart Rate 2023-07-13 15:08:00 86.00 /min Vera en F Roger Respiratory Rate 2023-07-13 15:08:00 18.00 /min Ernesto F Roger BP Systolic 2023-06-14 13:48:00 110 mm[Hg] Step hen F Roger BP Diastolic 2023-06-14 13:48:00 64 mm[Hg] Raj phen F Roger Weight Measured 2023-06-14 13:48:00 123.20 pounds Ernesto F Roger Height Measured 2023-06-14 13:48:00 62.30 inches Ernesto F Roger Body Temperature 2023-06-14 13:48:00 98.20 degrees Ernesto F Roger Heart Rate 2023-06-14 13:48:00 84.00 /min Vera en F Roger Respiratory Rate 2023-06-14 13:48:00 18.00 /min Ernesto F Roger BP Systolic 2023-04-01 10:13:00 122 mm[Hg] Step hen F Roger BP Diastolic 2023-04-01 10:13:00 80 mm[Hg] Raj phen F Roger Weight Measured 2023-04-01 10:13:00 120.00 pounds Ernesto F Roger Height Measured 2023-04-01 10:13:00 62.30 inches Ernesto F Roger Body Temperature 2023-04-01 10:13:00 98.40 degrees Ernesto F Roger Heart Rate 2023-04-01 10:13:00 112.00 /min Step hen F Roger Respiratory Rate 2023-04-01 10:13:00 18.00 /min Ernesto F Roger Respiratory Rate 2022-10-26 11:43:00 17.00 /min Ernesto F Roger BP Systolic 2022-10-26 11:43:00 96 mm[Hg] Step hen F Roger BP Diastolic 2022-10-26 11:43:00 69 mm[Hg] Raj phen F Roger Weight Measured 2022-10-26 11:43:00 117.80 pounds Ernesto F Roger Height Measured 2022-10-26 11:43:00 62.36 inches Ernesto F Roger Body Temperature 2022-10-26 11:43:00 98.40 degrees Ernesto F Roger Heart Rate 2022-10-26 11:43:00 111.00 /min Step hen F Roger BP Systolic 2022-08-31 16:16:00 107 mm[Hg] Step hen F Roger BP Diastolic 2022-08-31 16:16:00 73 mm[Hg] Raj phen F Roger Weight Measured 2022-08-31 16:16:00 117.00 pounds Ernesto F Roger Height Measured 2022-08-31 16:16:00 62.36 inches Ernesto F Roger Body Temperature 2022-08-31 16:16:00 98.30 degrees Ernesto Cevallos Heart Rate 2022-08-31 16:16:00 78.00 /min Vera Cevallos Respiratory Rate 2022-08-31 16:16:00 Ernesto Cevallos Procedures Procedure Date / Time Performed Performing Clinician Source CBC WITH DIFF 2023-12-01 09:17:00 Marti Chaudhry [facility] VENOUS CORD GAS 2023-11-30 13:49:00 Marge Mendoza [facility] PROTEIN CREAT RATIO URINE RANDOM 2023-11-30 10:18:00 Rosa Davis [facility] PROTEIN CREAT RATIO URINE RANDOM 2023-11-30 09:08:00 Susanne Wheeler [facility] URINALYSIS 2023-11-30 05:31:00 Rosa Davis [facility] CENTRAL NEURAXIAL BLOCK 2023-11-30 05:20:00 Reuben Reid [facility] SGOT (ASPARTATE AMINO TRANSFER) 2023-11-30 02:11:00 Rosa Davis [facility] CREATININE 2023-11-30 02:11:00 Rosa Davis [facility] ALANINE AMINO TRANSFERASE(SGPT 2023-11-30 02:11:00 Rosa Davis [facility] LACTATE DEHYDROGENASE 2023-11-30 02:11:00 Katie Davis Menea [facility] URIC ACID 2023-11-30 02:11:00 Rosa Davis [facility] CBC WITH DIFF 2023-11-30 02:11:00 Rosa Davis [facility] CBC WITH DIFF 2023-11-29 20:08:00 [facility] HEPATITIS B SURFACE ANTIGEN 2023-11-29 20:08:00 [place] [facility] HB ABO GROUPING 2023-11-29 20:08:00 [facility] RHO (D) IMMUNE GLOBULIN 2023-11-29 20:08:00 Marti Chaudhry [facility] HIV 1/2 AG-AB WITH REFLEX 2023-11-29 20:08:00 Roopa Perry [facility] SYPHILIS IGG/IGM 2023-11-29 20:08[facility] 2023-11-21 16:44:00 Rosita Kumar [facility] POCT URINALYSIS 2023-11-14 14:47:00 Rosita Kumar [facility] POCT URINALYSIS 2023-10-31 18:23:00 Rosita Kumar [facility] POCT URINALYSIS 2023-10-17 15:30:00 Rosita Kumar [facility] SECOND AND THIRD TRIMESTER ULTRASOUND 2023-10-12 20:00:00 Rosita Kumar [facility] POCT URINALYSIS 2023-10-05 15:23:00 Rosita Kumar [facility] POCT URINALYSIS 2023-09-19 20:43:00 Rosita Kumar [facility] REFERRAL- REQUEST/RESPONSE 2023-09-11 15:04:55 Doctor Unassigned, [place] [facility] TDAP VACCINE, >11 YRS, IM 2023-09-05 14:21:05 Rosita Kumar [facility] POCT TEST 2023-09-05 13:38:00 Catherine Kumar [facility] POCT URINALYSIS W/O SPECIFIC GRAVITY 2023-09-05 13:38:00 Rosita Kumar [facility] REFERRAL- REQUEST/RESPONSE 2023-08-16 14:13:42 Doctor Unassigned, [place] [facility] EXTERNAL PAP SMEAR WITH HPV CO-TEST 2023-07-13 05:00:00 Doctor Unassigned, [place] [facility] ASSIGNMENT OF BENEFITS 2023-04-26 18:58:35 Docto r Unassigned, [place] [facility] URINALYSIS 2020-09-03 04:03:00 Elise Noguera [facility] POCT TEST 2020-09-03 04:03:00 Elise Noguera [facility] LIPASE 2020-09-03 03:40:00 Elise Noguera [facility] COMP. METABOLIC PANEL ([id number]) 2020-09-03 03:40:00 Elise Noguera [facility] CBC WITH DIFF 2020-09-03 03:40:00 Elise Noguera [facility] Encounters Start Date/Time End Date/Time Encounter Type Admission Type Attending [facility] Care Facility Care Department Encounter ID Source 2023-08-16 00:00:00 2024-06-15 02:18:07 Orders Only Doctor Unassigned, [place] Doctor Unassigned, [place] [facility] 1..840.114 350.1.13.10 4.2.7.2.686 [id number] [facility] 2024-06-06 14:15:00 2024-06-06 14:15:00 Outpatient ROSITA REGAN [facility] [id number] [facility] 2024-02-02 00:00:00 2024-02-02 10:35:25 Telephone Shannon Cheema [facility] MATERNAL & CHILD [facility] 1..840.114 350.1.13.10 4.2.7.2.686 [id number] [facility] 2024-01-11 12:45:00 2024-01-11 14:26:34 Outpatient SHANNON OSMAN [facility] [id number] [facility] 2024-01-11 12:45:00 2024-01-11 14:26:34 Office Visit Deni [facility] & CHILD [facility] ..840.114 350.1.13.10 4.2.7.2.686 [id number] [facility] 2023-12-21 10:15:00 2023-12-21 11:02:04 Outpatient ROSITA REGAN [facility] [id number] [facility] 2023-12-21 10:15:00 2023-12-21 11:02:04 Routine Visit Rosita Kumar [facility] & CHILD [facility] 1..840.114 350.1.13.10 4.2.7.2.686 [id number] [facility] 2023-12-08 15:00:00 2023-12-08 15:00:00 Nurse Visit Visit, TommieRosita Mullen [facility] 1..840.114 350.1.13.10 4.2.7.2.686 [id number] [facility] 2023-12-08 15:00:00 2023-12-08 09:12:11 Outpatient ROSITA REGAN [facility] [id number] [facility] 2023-12-05 10:00:00 2023-12-05 10:14:09 Outpatient ROSITA REGAN [facility] [id number] [facility] 2023-12-05 10:00:00 2023-12-05 10:14:09 Nurse Visit Visit, LurdesRosita Ramachandran [facility] 1.840.114 350.1.13.10 4.2.7.2.686 [id number] [facility] 2023-12-01 00:00:00 2023-12-01 15:16:14 Encounter [facility] 1..840.114 350.1.13.10 4.2.7.2.686 [id number] [facility] 2023-11-29 13:53:00 2023-12-01 15:14:00 Inpatient DARREL AMEZQUITAAN [facility] [id number] [facility] 2023-11-29 13:53:00 2023-12-01 15:14:00 Hospital Encounter Lizbeth Jenkins [facility] 1.2.840.114 350.1.13.10 4.2.7.2.686 [id number] [facility] 2023-11-29 23:54:00 2023-11-30 10:34:00 Anesthesia Event Kieran Reid Stacey [facility] 1.2840.114 350.1.13.10 4.2.7.2.686 [id number] [facility] 2023-11-21 10:45:00 2023-11-21 11:04:51 Outpatient R ROSITA KUMAR [facility] [id number] [facility] 2023-11-21 10:45:00 2023-11-21 11:04:51 Routine Visit Rosita Kumar [facility] MATERNAL & CHILD [facility] 1.840.114 350.1.13.10 4.2.7.2.686 [id number] [facility] 2023-11-14 09:45:00 2023-11-14 10:10:40 Outpatient R ROSITA KUMAR [facility] [id number] [facility] 2023-11-14 09:45:00 2023-11-14 10:10:40 Routine Visit Rosita Kumar [facility] MATERNAL & CHILD [facility] 1.2840.114 350.1.13.10 4.2.7.2.686 [id number] [facility] 2023-11-10 10:30:00 2023-11-10 10:30:00 Outpatient R ROSITA KUMAR [facility] [id number] [facility] 2023-11-07 12:30:00 2023-11-07 12:30:00 Outpatient R ESTELLEVishnu ROSITA [facility] [id number] [facility] 2023-10-31 13:15:00 2023-10-31 13:43:34 Outpatient R ESTELLEVishnu ROSITA [facility] [id number] [facility] 2023-10-31 13:15:00 2023-10-31 13:43:34 Routine Visit Rosita Kumar [facility] MATERNAL & CHILD [facility] 1..840.114 350.1.13.10 4.2.7.2.686 [id number] [facility] 2023-10-17 10:30:00 2023-10-17 10:45:25 Outpatient Andria MCCABEVishnu ROSITA [facility] [id number] [facility] 2023-10-17 10:30:00 2023-10-17 10:45:25 Routine Visit Brock Rosita Marie [facility] & CHILD [facility] 1.2.840.114 350.1.13.10 4.2.7.2.686 [id number] [facility] 2023-10-16 00:00:00 2023-10-16 16:57:31 Abstract Jayson Cotto [facility] & CHILD [facility] 1.2.840.114 350.1.13.10 4.2.7.2.686 [id number] [facility] 2023-10-12 00:00:00 2023-10-12 17:07:29 Abstract Jayson Cotto [facility] & CHILD [facility] 1.2.840.114 350.1.13.10 4.2.7.2.686 [id number] [facility] 2023-10-12 14:00:00 2023-10-12 15:03:47 Outpatient R LIZBETH JENKINS [facility] [id number] [facility] 2023-10-12 14:00:00 2023-10-12 15:03:47 Legislative Assistant Visit 1, [facility] Room Lizbeth Jenkins [facility] MATERNAL & CHILD [facility] 1..840.114 350.1.13.10 4.2.7.2.686 [id number] [facility] 2023-10-05 10:15:00 2023-10-05 11:03:37 Outpatient R JAYSON COTTO [facility] [id number] [facility] 2023-10-05 10:15:00 2023-10-05 11:03:37 Routine Visit Jayson Cotto [facility] MATERNAL & CHILD [facility] 1..840.114 350.1.13.10 4.2.7.2.686 [id number] [facility] 2023-09-19 16:15:00 2023-09-19 16:28:22 Routine Visit Rosita Kumar [facility] & CHILD [facility] 1..840.114 350.1.13.10 4.2.7.2.686 [id number] [facility] 2023-09-19 16:15:00 2023-09-19 16:28:22 Outpatient R ROSITA KUMAR [facility] [id number] [facility] 2023-09-15 10:02:59 2023-09-15 10:02:59 Outpatient LAVON [facility] [id number] Ernesto F Roger 2023-09-12 00:00:00 2023-09-14 11:45:39 Case Management Rosita Kumar [facility] MATERNAL & CHILD [facility] 1..840.114 350.1.13.10 4.2.7.2.686 [id number] [facility] 2023-09-08 16:08:09 2023-09-08 16:08:09 Outpatient SFA [facility] [id number] Ernesto Cevallos 2023-09-08 00:00:00 2023-09-08 00:00:00 Outpatient Visit SFA [id number] Ernesto Cevallos 2023-09-07 00:00:00 2023-09-07 07:57:13 Telephone Rosita Kumar [facility] & CHILD [facility] 1.2.840.114 350.1.13.10 4.2.7.2.686 [id number] [facility] 2023-09-06 00:00:00 2023-09-06 06:36:16 Case Management Rosita Kumar [facility] & CHILD [facility] 1.2.840.114 350.1.13.10 4.2.7.2.686 [id number] [facility] 2023-09-05 09:15:00 2023-09-05 09:52:17 Outpatient R ROSITA KUMAR [facility] [id number] [facility] 2023-09-05 09:15:00 2023-09-05 09:52:17 Initial Visit Rosita Kumar [facility] 1.2.840.114 350.1.13.10 4.2.7.2.686 [id number] [facility] 2023-08-09 14:19:00 2023-08-09 14:19:00 Outpatient SFA SFA [id number] Ernesto Cevallos 2023-07-20 14:21:32 2023-07-20 14:21:32 Outpatient SFA [facility] [id number] Ernesto Cevallos 2023-07-13 14:51:55 2023-07-13 14:51:55 Outpatient SFA [facility] [id number] Ernesto Cevallos 2023-06-14 15:38:43 2023-06-14 15:38:43 Outpatient [facility]FA [facility] [id number] Ernesto Cevallos 2023-04-26 13:15:00 2023-04-26 13:15:00 Outpatient Andria HORACIOVINCENZOTONYAJAYSON [facility] [id number] [facility] 2023-04-26 00:00:00 2023-04-26 00:00:00 Orders Only Doctor Unassigned, [place] [facility] 1..840.114 350.1.13.10 4.2.7.2.686 [id number] [facility] 2023-04-01 10:08:14 2023-04-01 10:08:14 Outpatient [facility] [id number] Ernesto Cevallos 2022-10-26 11:35:06 2022-10-26 11:35:06 Outpatient [facility] [id number] Ernesto Cevallos 2022-08-31 16:12:37 2022-08-31 16:12:37 Outpatient [facility] [id number] Ernesto Cevallos 2022-08-26 16:03:42 2022-08-26 16:03:42 Outpatient [facility] [id number] Ernesto Cevallos 2020-09-02 22:18:00 2020-09-03 00:01:00 Emergency Elise Noguera [facility] 1..840.114 350.1.13.10 4.2.7.2.686 [id number] [facility] 2020-09-02 22:18:00 2020-09-02 22:18:00 Emergency X ELISE NOGUERA [facility] ERT [id number] [facility] Results Test Description Test Time Test Comments Results Result Co mments Source [facility] IMMUNE [id number] 17:52:21* Test Item Value Reference Range Interpretation Comme nts RHIG CANDIDATE? (test code = 5188) No- see comment Patient is not a candidate for RhIg- Patient is Rh Positive.Performed at [facility] Laboratory Services - [facility] Blood [id number] [place] [address]Gzor Free: [phone] No. [id number] [facility] IgG/[id number] 15:09:33* Test Item Value Reference Range Interpretation Comme nts Syphilis IgG/IgM (test code = 61553-3) Non-reactive Non-reactive CLEVELAND (test code = CLEVELAND) Non-reactive - No serologic evidence of T. pallidum infection. Cannot exclude incubating or early syphilis. Submit a second specimen in 2-4 weeks if syphilis is clinically suspected. Equivocal - Further testing to follow. Reactive - Further testing to follow. Lab Interpretation (test code = 57621-7) Normal [facility] Cord [id number] 14:27:10* Test Item Value Reference Range Interpretation Comme nts BASE EXCESS, CORD (test code = 5973698302) -3.9 mEq/L AC PH, CORD (BEAKER) (test c ode = 5891721906) 7.18 7.18-7.38 PC02, CORD (test code = 8294124182) 73 32-66 H PO2, CORD (test code = 4811460116) 15 10-30 BICARBONATE, CORD (test code = 4084885159) 26 17-27 Lab Interpretation (test cod e = 14045-7) Abnormal [facility]ano[facility] Cord [id number] 14:26:49* Test Item Value Reference Range Interpretation Comme nts VENOUS BASE EXCESS, CORD (te st code = 1808275678) -3.6 mEq/L VENOUS PH, CORD (test code = 4608037621) 7.30 7.25-7.45 VENOUS PC02, CORD (test code = 9494059833) 49 27-49 VENOUS PO2, CORD (test code = 2990187322) 21 17-41 VENOUS BICARBONATE, CORD (te st code = 9577134039) 23 12-29 [facility] [id number] 05:20:00 Kieran Reid MD ? ? 11/30/2023 12:20 AM Central Neuraxial Block Date/Time: 11/30/2023 12:20 AMPerformed by: Kieran Reid MDAuthorized by: Be Lam MD ?Patient Location: OBReason for Block: OB request, Patient request, Labor analgesia, Surgical anesthesia and Post-op pain managementStaff: ?Anesthesiologist: Be Lam MD ?Resident/PARTS SALESMAN: Kieran Reid MD ?Performed by: resident/CRNAPreanesthetic Checklist: patient identified, IV checked, risks and benefits explained, monitors and equipment checked, timeout performed, pre-op evaluation, site marked and anesthesia consentProcedure: ?Type of Neuraxial: Epidural ?Epidural Description: 1stattempt ? Sterility Prep cap, drape, gloves, hand hygiene and mask ?Patient Position: sitting ?Prep: Betadine and patient draped ? ?Monitoring: heart rate, continuous pulse ox, heart rate / toco and NIBP ?Location: lumbar (1-5) ?Lumbar: L3-L4 ?Approach: midline ? ?Technique: CRISTINA air and catheter ?Guidance with: landmark technique}Epidural/Spinal Copeland and/or Catheter: ?Epidural/Spinal Kit: BBraun ?Needle Type: Tuohy ?Needle Gauge: 17 G ?Needle Length: 3.5 in (8.89 cm) ?Needle Insertion Depth: 8 ?Catheter Type: multiport ? ?Catheter Size: 19 G ? ?Catheter at Skin Depth: 13 ?Number of Attempts: 1 ?Test Dose: lidocaine 1.5% with epinephrine 1-to-200,000 ? ?Dose: 5 cc ? ?Catheter Securement Method: surgical tape, Tegaderm, clear occlusive dressing and liquid medical adhesiveAssessment: ?Block Outcome: patient tolerated procedure well ? ?Procedure Assessment: patient tolerated procedure well with no complicationsNotes: ? Patient consented and positioned sitting upright with instructions given regarding positioning and maintaining a sterile field. Patient prepped and draped in sterile fashion. Epidural kit opened and medications prepared utilizing sterile protocol. CRISTINA to Salinewas used midline at L3L4 interspace. CRISTINA was at ?8 cm attempts x 1. Catheter threaded smoothly, taped at skin at 13 cm. Negative aspiration of blood or CSF x 3. Negative Test dose. Epidural catheter secured in place using tegederm and tape while maintaining insertion site sterility. Pumps settings are continuous 10cc/hr PCEA 4cc- 15 mins lockout. 5 ml bolus was given initially. Patient instructedto lay back down on back and given instructions on FEATHER SEPARATOR functionality. Fall precautions provided, patient vocalized understanding and all questions answered. ?[facility]anoLactate [id number] 03:00:15* Test Item Value Reference Range Interpretation Comme nts LDH (test code = 6699017094) 190 U/L 120-246 Lab Interpretation (test cod e = 51647-1) Normal [facility]anoUric Acid [id number] 02:59:55* Test Item Value Reference Range Interpretation Comme nts URIC ACID (test code = 0152648509) 3.7 mg/dL 2.9-6.0 Lab Interpretation (test cod e = 15192-5) Normal [facility]anoSerum [id number] 02:59:55* Test Item Value Reference Range Interpretation Comme [facility] CREATININE (test code = 2160-0) 0.39 mg/dL 0.50-1.04 L eGFR (test code = 04281-5) 144.6 mL/min/1.73m2 CKD-EPI eGFR (2020). Assuming creatinine has been stable day-to-day for at least three months, the eGFR indicates Category G1 (>= 90 mL/min/1.73 m2) Lab Interpretation (test code = 70839-4) Abnormal [facility]ano[facility]OT (Asparate Amino Transfer)2023-11-30 02:59:55* Test Item Value Reference Range Interpretation Comme [facility] AST(SGOT) (test code = 8757632433) 23 U/L 13-40 Lab Interpretation (test cod e = 35645-2) Normal [facility]anoAlanine Amino Transferase (SGPT)2023-11-30 02:59:55* Test Item Value Reference Range Interpretation Comme nts ALTv (test code = 1742-6) 13 U/L 5-35 Lab Interpretation (test cod e = 79713-1) Normal [facility]anoCBC with Asydckefjviy2680-30-64 02:35:29* Test Item Value Reference Range Interpretation Comme nts WBC (test code = 6690-2) 14.60 4.30-11.10 H RBC (test code = 789-8) 3.62 3.93-5.25 L HGB (test code = 718-7) 10.6 g/dL 11.6-15.0 L HCT (test code = 4544-3) 31.8 % 35.7-45.2 L MCV (test code = 787-2) 87.8 fL 80.6-95.5 MCH (test code = 785-6) 29.3 pg 25.9-32.8 MCHC (test code = 786-4) 33.3 g/dL 31.6-35.1 RDW-SD (test code = 24353-9) 43.8 fL 39.0-49.9 RDW-CV (test code = 788-0) 13.6 % 12.0-15.5 PLT (test code = 777-3) 176 166-358 MPV (test code = 05421-8) 11.6 fL 9.5-12.9 NRBC/100 WBC (test code = 7558345551) 0.0 0.0-10.0 NRBC x10^3 (test code = 9950938114) See_Comment [Automated message] The system which generated this result transmitted reference range: 10*3/?L. The reference range was not used to interpret this result as normal/abnormal. GRAN MAT (NEUT) % (test code = 770-8) 83.3 % IMM GRAN % (test code = 3114639887) 1.60 % LYMPH % (test code = 736-9) 8.7 % MONO % (test code = 5905-5) 5.8 % EOS % (test code = 713-8) 0.4 % BASO % (test code = 706-2) 0.2 % GRAN MAT x10^3(ANC) (test code = 0689387879) 12.17 10*3/uL 1.88-7.09 H IMM GRAN x10^3 (test code = 1202531190) 0.23 10*3/uL 0.00-0.06 H LYMPH x10^3 (test code = 731-0) 1.27 10*3/uL 1.32-3.29 L MONO x10^3 (test code = 742-7) 0.84 10*3/uL 0.33-0.92 EOS x10^3 (test code = 711-2) 0.06 10*3/uL 0.03-0.39 BASO x10^3 (test code = 704-7) 0.03 10*3/uL 0.01-0.07 Lab Interpretation (test code = 86623-0) Abnormal [facility]anoHIV 1/2 Ag-Ab with [id number] 23:18:06* Test Item Value Reference Range Interpretation Comme nts HIV Semi-quantitative (test code = 12940-4) 0.15 Negative CLEVELAND (test code = CLEVELAND) Non-reactive for HIV-1 antigen and HIV-1/HIV-2 antibodies. ?No laboratory evidence of HIV infection. ?Repeat in 2-4 weeks if acute HIV infection is suspected. [facility]anoHepatitis B Surface [id number] 21:28:26 * Test Item Value Reference Range Interpretation Comme nts HBsAg Semi-Quantitative (rtudy t code = 5195-3) 0.16 Negative [facility] PlanoCbc with [id number] 20:28:15* Test Item Value Reference Range Interpretation Comme nts WBC (test code = 6690-2) 13.16 4.30-11.10 H RBC (test code = 789-8) 3.68 3.93-5.25 L HGB (test code = 718-7) 10.7 g/dL 11.6-15.0 L HCT (test code = 4544-3) 31.7 % 35.7-45.2 L MCV (test code = 787-2) 86.1 fL 80.6-95.5 MCH (test code = 785-6) 29.1 pg 25.9-32.8 MCHC (test code = 786-4) 33.8 g/dL 31.6-35.1 RDW-SD (test code = 53295-2) 43.2 fL 39.0-49.9 RDW-CV (test code = 788-0) 13.8 % 12.0-15.5 PLT (test code = 777-3) 198 166-358 MPV (test code = 93548-3) 11.1 fL 9.5-12.9 NRBC/100 WBC (test code = 2083510764) 0.0 0.0-10.0 NRBC x10^3 (test code = 9100100365) See_Comment [Automated message] The system which generated this result transmitted reference range: 10*3/?L. The reference range was not used to interpret this result as normal/abnormal. GRAN MAT (NEUT) % (test code = 770-8) 76.2 % IMM GRAN % (test code = 0610495067) 2.30 % LYMPH % (test code = 736-9) 12.9 % MONO % (test code = 5905-5) 7.4 % EOS % (test code = 713-8) 0.7 % BASO % (test code = 706-2) 0.5 % GRAN MAT x10^3(ANC) (test code = 5687832958) 10.04 10*3/uL 1.88-7.09 H IMM GRAN x10^3 (test code = 2052505068) 0.30 10*3/uL 0.00-0.06 H LYMPH x10^3 (test code = 731-0) 1.70 10*3/uL 1.32-3.29 MONO x10^3 (test code = 742-7) 0.97 10*3/uL 0.33-0.92 H EOS x10^3 (test code = 711-2) 0.09 10*3/uL 0.03-0.39 BASO x10^3 (test code = 704-7) 0.06 10*3/uL 0.01-0.07 Lab Interpretation (test code = 75868-0) Abnormal [facility]anoType and Screen - ONCE Scbhdib1729-15-06 20:15:00* Test Item Value Reference Range Interpretation Comme nts ABO & RH (test code = 20) O POSITIVE IAT (test code = 1185) Negative [facility]anoPOCT URINALYSIS W SPECIFIC [id number] 16:44:00* Test Item Value Reference Range Interpretation Comme nts POCT U SP GRAV (test code = 3255) . 1.005-1.025 POCT PH U (test code = 3254) 6 mg/dl 5-8 POCT U LEUK EST (test code = 3263) Trace Negative - Negative POCT U NIT (test code = 3262) Neg Negative - Negati ve POCT U PROT (test code = 3259) Trace Negative - Negat lesly POCT U GLU (test code = 3256) Nml Negative - Negati ve POCT U KETONE (test code = 3258) None Negative - Neg ative POCT U UROBILI (test code = 3260) . 0.2-1 POCT U BILI (test code = 3261) . Negative - Negat lesly POCT U BLD (test code = 3257) Trace Negative - Negati ve POCT U COLOR (test code = 3266) . POCT U APPEAR (test code = 3267) [facility] URINALYSIS W SPECIFIC [id number] 14:47:00* Test Item Value Reference Range Interpretation Comme nts POCT U SP GRAV (test code = 3255) . 1.005-1.025 POCT PH U (test code = 3254) 6 mg/dl 5-8 POCT U LEUK EST (test code = 3263) 1+ Negative - Negative POCT U NIT (test code = 3262) Neg Negative - Negati ve POCT U PROT (test code = 3259) Trace Negative - Negat lesly POCT U GLU (test code = 3256) Nml Negative - Negati ve POCT U KETONE (test code = 3258) Neg Negative - Neg ative POCT U UROBILI (test code = 3260) . 0.2-1 POCT U BILI (test code = 3261) . Negative - Negat lesly POCT U BLD (test code = 3257) Trace Negative - Negati ve POCT U COLOR (test code = 3266) . POCT U APPEAR (test code = 3267) ... [facility] URINALYSIS W SPECIFIC [id number] 18:23:00* Test Item Value Reference Range Interpretation Comme nts POCT U SP GRAV (test code = 3255) . 1.005-1.025 POCT PH U (test code = 3254) 5 mg/dl 5-8 POCT U LEUK EST (test code = 3263) 1+ Negative - Negative POCT U NIT (test code = 3262) Neg Negative - Negati ve POCT U PROT (test code = 3259) 1+ Negative - Negat lesly POCT U GLU (test code = 3256) Nml Negative - Negati ve POCT U KETONE (test code = 3258) None Negative - Neg ative POCT U UROBILI (test code = 3260) . 0.2-1 POCT U BILI (test code = 3261) . Negative - Negat lesly POCT U BLD (test code = 3257) . Negative - Negati ve POCT U COLOR (test code = 3266) Trace POCT U APPEAR (test code = 3267) [facility] URINALYSIS W SPECIFIC [id number] 15:31:00* Test Item Value Reference Range Interpretation Comme nts POCT U SP GRAV (test code = 3255) . 1.005-1.025 POCT PH U (test code = 3254) 6 mg/dl 5-8 POCT U LEUK EST (test code = 3263) Trace Negative - Negative POCT U NIT (test code = 3262) Neg Negative - Negati ve POCT U PROT (test code = 3259) Trace Negative - Negat lesly POCT U GLU (test code = 3256) Nml Negative - Negati ve POCT U KETONE (test code = 3258) None Negative - Neg ative POCT U UROBILI (test code = 3260) . 0.2-1 POCT U BILI (test code = 3261) . Negative - Negat lesly POCT U BLD (test code = 3257) Trace Negative - Negati ve POCT U COLOR (test code = 3266) . POCT U APPEAR (test code = 3267) ... [facility] URINALYSIS W SPECIFIC [id number] 15:31:00* Test Item Value Reference Range Interpretation Comme nts POCT U SP GRAV (test code = 3255) . 1.005-1.025 POCT PH U (test code = 3254) 6 mg/dl 5-8 POCT U LEUK EST (test code = 3263) Trace Negative - Negative POCT U NIT (test code = 3262) Neg Negative - Negati ve POCT U PROT (test code = 3259) Trace Negative - Negat lesly POCT U GLU (test code = 3256) Nml Negative - Negati ve POCT U KETONE (test code = 3258) None Negative - Neg ative POCT U UROBILI (test code = 3260) . 0.2-1 POCT U BILI (test code = 3261) . Negative - Negat lesly POCT U BLD (test code = 3257) Trace Negative - Negati ve POCT U COLOR (test code = 3266) . POCT U APPEAR (test code = 3267) ... [facility] URINALYSIS W SPECIFIC [id number] 15:31:00* Test Item Value Reference Range Interpretation Comme nts POCT U SP GRAV (test code = 3255) . 1.005-1.025 POCT PH U (test code = 3254) 6 mg/dl 5-8 POCT U LEUK EST (test code = 3263) Trace Negative - Negative POCT U NIT (test code = 3262) Neg Negative - Negati ve POCT U PROT (test code = 3259) Trace Negative - Negat lesly POCT U GLU (test code = 3256) Nml Negative - Negati ve POCT U KETONE (test code = 3258) None Negative - Neg ative POCT U UROBILI (test code = 3260) . 0.2-1 POCT U BILI (test code = 3261) . Negative - Negat lesly POCT U BLD (test code = 3257) Trace Negative - Negati ve POCT U COLOR (test code = 3266) . POCT U APPEAR (test code = 3267) ... [facility] URINALYSIS W SPECIFIC [id number] 15:24:00* Test Item Value Reference Range Interpretation Comme nts POCT U SP GRAV (test code = 3255) . 1.005-1.025 POCT PH U (test code = 3254) . 5-8 POCT U LEUK EST (test code = 3263) . Negative - N egative POCT U NIT (test code = 3262) . Negative - Negati ve POCT U PROT (test code = 3259) trace Negative - Negat lesly POCT U GLU (test code = 3256) neg Negative - Negati ve POCT U KETONE (test code = 3258) . Negative - Neg ative POCT U UROBILI (test code = 3260) . 0.2-1 POCT U BILI (test code = 3261) . Negative - Negat lesly POCT U BLD (test code = 3257) . Negative - Negati ve POCT U COLOR (test code = 3266) POCT U APPEAR (test code = 3267) [facility] URINALYSIS W SPECIFIC [id number] 15:24:00* Test Item Value Reference Range Interpretation Comme nts POCT U SP GRAV (test code = 3255) . 1.005-1.025 POCT PH U (test code = 3254) . 5-8 POCT U LEUK EST (test code = 3263) . Negative - N egative POCT U NIT (test code = 3262) . Negative - Negati ve POCT U PROT (test code = 3259) trace Negative - Negat lesly POCT U GLU (test code = 3256) neg Negative - Negati ve POCT U KETONE (test code = 3258) . Negative - Neg ative POCT U UROBILI (test code = 3260) . 0.2-1 POCT U BILI (test code = 3261) . Negative - Negat lesly POCT U BLD (test code = 3257) . Negative - Negati ve POCT U COLOR (test code = 3266) POCT U APPEAR (test code = 3267) [facility] URINALYSIS W SPECIFIC [id number] 20:43:00* Test Item Value Reference Range Interpretation Comme nts POCT U SP GRAV (test code = 3255) . 1.005-1.025 POCT PH U (test code = 3254) 5 mg/dl 5-8 POCT U LEUK EST (test code = 3263) Neg Negative - Negative POCT U NIT (test code = 3262) Neg Negative - Negati ve POCT U PROT (test code = 3259) 1+ Negative - Negat lesly POCT U GLU (test code = 3256) Nml Negative - Negati ve POCT U KETONE (test code = 3258) None Negative - Neg ative POCT U UROBILI (test code = 3260) .. 0.2-1 POCT U BILI (test code = 3261) . Negative - Negat lesly POCT U BLD (test code = 3257) ~250 Negative - Negati ve POCT U COLOR (test code = 3266) . POCT U APPEAR (test code = 3267) [facility], UR [id number] 07:49:00* Test Item Value Reference Range Interpretation Comme nts SOURCE: (test code = 78746346) URINE STATUS: (test code = 19665681) FINAL RESULT: (test code = 63222462) TNP Test not performed. The specimen exceeds stability for the test requested. [facility]ITAL[facility]ERRAL- REQUEST/[id number] 15:04:55Ordered by an unspecified provider.[facility] Urinalysis w/o Specific [id number] 13:39:00* Test Item Value Reference Range Interpretation Comme nts POCT PH U (test code = 3254) 6 mg/dl 5-8 POCT U LEUK EST (test code = 3263) Trace Negative - Negative POCT U NIT (test code = 3262) Neg Negative - Negati ve POCT U PROT (test code = 3259) Trace Negative - Negat lesly POCT U GLU (test code = 3256) Nml Negative - Negati ve POCT U KETONE (test code = 3258) None Negative - Neg ative POCT U BLD (test code = 3257) Neg Negative - Negati ve [facility] [id number] 13:38:00* Test Item Value Reference Range Interpretation Comme nts POCT PREG (test code = 1605) Positive On board controls acceptable with C Line (test code = 3574) Yes POCT PREG LOT # (test code = 3575) POCT PREG TEST DATE ( test code = 3576) [facility]/[id number] 14:13:42 Ordered by an unspecified provider.[facility], [id number] 00:00:00* Test Item Value Reference Range Interpretation Comme nts CULTURE, URINE (test code = 85117) SPECIMEN NUMBER: [id number] Ernesto CevallosCBC W/AUTO [id number] 00:00:00* Test Item Value Reference Range Interpretation Comme nts WBC (test code = 1001) 12.5 K/UL RBC (test code = 1002) 3.52 M/UL HEMOGLOBIN (test code = 1003) 11.0 G/DL HEMATOCRIT (test code = 1004) 32.1 % MCV (test code = 1005) 91.2 fL MCH (test code = 1006) 31.3 PG MCHC (test code = 1007) 34.3 G/DL RDW (test code = 1038) 12.2 % NEUTROPHILS (test code = 1008) 79.2 % LYMPHOCYTES (test code = 1010) 11.7 % MONOCYTES (test code = 1011) 5.0 % EOSINOPHILS (test code = 1012) 0.9 % BASOPHILS (test code = 1013) 0.4 % IMMATURE GRANULOCYTES (test code = 1036) 2.8 % NUCLEATED RBCS (test code = 1065) 0.0 /100WBC'S PLATELET COUNT (test code = 1015) 185 K/UL ABSOLUTE NEUTROPHILS (test c ode = 1066) 9.90 K/UL ABSOLUTE LYMPHOCYTES (test c ode = 1067) 1.46 K/UL ABSOLUTE MONOCYTES (test cod e = 1068) 0.62 K/UL ABSOLUTE EOSINOPHILS (test c ode = 1040) 0.11 K/UL ABSOLUTE BASOPHILS (test cod e = 1069) 0.05 K/UL ABS IMMATURE GRANULOCYTES (t est code = 1020) 0.35 K/UL ABS NUCLEATED RBCS (test cod e = 33678) 0.00 K/UL Ernesto CeavllosCT/NG, TMA, [id number] 00:00:00* Test Item Value Reference Range Interpretation Comme nts CHLAMYDIA, NAAT, URINE (test code = 24485) NEGATIVE GONORRHEA, NAAT, URINE (test code = 24549) NEGATIVE Ernesto CevallosRPR REFLEX TO T. PALLIDUM - [id number] 00:00:00* Test Item Value Reference Range Interpretation Comme nts RPR (test code = 58425) NON-REACTIVE RPR TITER (test code = 3500) NOT INDIC. TITER Ernesto CevallosGLUCOSE, 1 HR, GESTATIONAL SCREEN, 50 GM [id number] 00:00:00 * Test Item Value Reference Range Interpretation Comme nts GLUCOSE 1 HR POST 50 GM (trudy t code = 2005) 113 MG/DL Ernesto CevallosExternal Pap Smear With HPV [id number] 00:00:00* Test Item Value Reference Range Interpretation Comme nts External Pap Smear (test code = 55977-3) [facility] [place] External HPV (test code = 61396-8) HRHPV + General acute hospital TEST, THINPREP, [id number] 00:00:00 * Test Item Value Reference Range Interpretation Comme nts SOURCE: (test code = 8001) Cervical/Endo cervic al SLIDES: (test code = 8011) 1 LMP: (test code = 8021) 02/20/2023 SPECIMEN ADEQUACY: (test code = 57021) (NOTE) INTERPRETATION: (test code = 95653) LSIL/EPITH. ABNORMALITY; SEE BELOW OTHER COMMENTS: (test code = 8081) (NOTE) SPINNING LATHE OPERATOR AUTOMATIC: (test code = 8101) Becki Lambert PATHOLOGIST INTERPRETATION BY: (test code = 8122) Fatuma Oropeza DO LOCATION: (test code = 04915) (NOTE) CPT: (test code = 8140) (NOTE) Ernesto CevallosHPV HIGH IF ABNORMAL [id number] 00:00:00* Test Item Value Reference Range Interpretation Comme nts HPV HIGH IF ABNORMAL THINPRE P (test code = 29388) SEE BELOW Ernesto CevallosHPV HIGH RISK WITH GENOTYPE, TP [REFLEX]2023-07-17 00:00:00* Test Item Value Reference Range Interpretation Comme nts HPV HIGH RISK INTERP (test c ode = 23307) POSITIVE HPV 16 (test code = 60052) NEGATIVE HPV 18 (test code = 65752) NEGATIVE HPV, HR, OTHER GENOTYPES (te st code = 37281) POSITIVE Ernesto CevallosVAGINAL PATHOGENS DNA [id number] 00:00:00* Test Item Value Reference Range Interpretation Comme nts ANTON SPECIES (test code = 45669) NEGATIVE G. VAGINALIS (test code = ) POSITIVE T. VAGINALIS (test code = 38981) NEGATIVE Ernesto CevallosCULTURE, [id number] 00:00:00* Test Item Value Reference Range Interpretation Comme nts CULTURE, URINE (test code = 39907) SPECIMEN NUMBER: [id number] Ernesto CevallosGC AND CHLAMYDIA AMPLIFIED, [id number] 00:00:00* Test Item Value Reference Range Interpretation Comme nts CHLAMYDIA, NAAT, THINPREP (t est code = 07435) NEGATIVE GONORRHEA, NAAT, THINPREP (t est code = 99185) NEGATIVE Ernesto CevallosNIPT W/ [id number] 00:00:00* Test Item Value Reference Range Interpretation Comme nts FINAL NIPS RESULT (test code = 60461) Low Risk PREDICTED SEX (test code = 42886) Female FRACTION (EST.) (test code = 95153) 13 % TRISOMY 21 (T21) (test code = 41978) Low probability T21 PRE-TEST PROB (test code = 54194) 1/,126 T21 POST-TEST PROB (test cod e = 30441) <1/20,000 TRISOMY 18 (T18) (test code = 252832) Low probability T18 PRE-TEST PROB (test code = 480783) 1/2,500 T18 POST-TEST PROB (test cod e = 562601) <1/20,000 TRISOMY 13 (T13) (test code = 047193) Low probability T13 PRE-TEST PROB (test code = 744252) 1/6,927 T13 POST-TEST PROB (test cod e = 076806) <1/20,000 INTERPRETATION (test code = 101515) See Note IMPORTANT INFORMATION (test code = 947546) See Note RECOMMENDATION (test code = 379172) See Note GESTATION AT JULISSA (W) (test code = 448149) 16 weeks GESTATION AT JULISSA (D) (test code = 306251) 2 days DELIVERY DATE (EST.) (test code = 782613) 11/27/2023 PROVIDED HISTORY INFORMATION (test code = 843684) NUMBER OF FETUSES (test code = 698279) Sandhu MATERNAL WEIGHT (test code = 303987) 123 LBS DATING METHOD (test code = 932001) LMP ESTIMATED DATE OF DELIVERY (LATANYA) (test code = 166129) 02/20/2023 IVF (test code = 469597) NO PATIENT CONSENT (test code = 264232) YES SEX (test code = 494706) See Note Ernesto CevallosCULTURE, [id number] 00:00:00* Test Item Value Reference Range Interpretation Comme nts CULTURE, URINE (test code = 84812) SPECIMEN NUMBER: [id number] Ernesto CevallosT. PALLIDUM - PA [REFLEX]2023-06-17 00:00:00* Test Item Value Reference Range Interpretation Comme nts T. PALLIDUM - PA (test code = 28761) NON-REACTIVE Ernesto Hoskins AustinOBSTETRIC PANEL + [id number] 00:00:00* Test Item Value Reference Range Interpretation Comme nts WBC (test code = 1001) 11.7 K/UL RBC (test code = 1002) 3.89 M/UL HEMOGLOBIN (test code = 1003) 11.7 G/DL HEMATOCRIT (test code = 1004) 34.7 % MCV (test code = 1005) 89.2 fL MCH (test code = 1006) 30.1 PG MCHC (test code = 1007) 33.7 G/DL RDW (test code = 1038) 12.4 % NEUTROPHILS (test code = 1008) 77.8 % LYMPHOCYTES (test code = 1010) 14.5 % MONOCYTES (test code = 1011) 5.6 % EOSINOPHILS (test code = 1012) 0.9 % BASOPHILS (test code = 1013) 0.3 % IMMATURE GRANULOCYTES (test code = 1036) 0.9 % NUCLEATED RBCS (test code = 1065) 0.0 /100WBC'S PLATELET COUNT (test code = 1015) 238 K/UL ABSOLUTE NEUTROPHILS (test c ode = 1066) 9.05 K/UL ABSOLUTE LYMPHOCYTES (test c ode = 1067) 1.69 K/UL ABSOLUTE MONOCYTES (test cod e = 1068) 0.65 K/UL ABSOLUTE EOSINOPHILS (test c ode = 1040) 0.11 K/UL ABSOLUTE BASOPHILS (test cod e = 1069) 0.04 K/UL ABS IMMATURE GRANULOCYTES (t est code = 1020) 0.11 K/UL ABS NUCLEATED RBCS (test cod e = 94946) 0.00 K/UL BLOOD TYPE AND RH (test code = 3901) O POSITIVE ANTIBODY SCREEN (test code = 3902) NEGATIVE RUBELLA ANTIBODY SCREEN (trudy t code = 4600) 15 IU/ML RUBELLA IgG INTERP (test cod e = 76350) REACTIVE HEPATITIS B SURF AG (test co de = 2739) NON-REACTIVE RPR (test code = 47450) REACTIVE RPR TITER (test code = 3500) 1:1 TITER HIV 1/2 4TH GEN, RFLX CONF (test code = 3514) NON-REACTIVE Ernesto CevallosHEPATITIS C REFLEX [id number] 00:00:00* Test Item Value Reference Range Interpretation Comme nts HEPATITIS C ANTIBODY (test c ode = 4675) NON-REACTIVE Ernesto CevallosVARICELLA ZOSTER [id number] 00:00:00* Test Item Value Reference Range Interpretation Comme nts VARICELLA ZOSTER IgG (test c ode = 16289) 596 INDEX Ernesto CevallosDRUG ABUSE SCREEN 10 REFLEX [id number] 00:00:00* Test Item Value Reference Range Interpretation Comme nts AMPHETAMINES (test code = 3201) NEGATIVE BARBITURATES (test code = 3202) NEGATIVE BENZODIAZEPINES (test code = 3203) NEGATIVE CANNABINOIDS (test code = 3204) NEGATIVE COCAINE METABOLITE (test cod e = 3205) NEGATIVE OPIATES (test code = 3209) NEGATIVE OXYCODONE (test code = 34377) NEGATIVE PHENCYCLIDINE (test code = 3210) NEGATIVE METHADONE (test code = 3207) NEGATIVE BUPRENORPHINE (test code = 50552) NEGATIVE SOURCE (test code = 204732) URINE Ernesto CevallosCT/NG, TMA, [id number] 00:00:00* Test Item Value Reference Range Interpretation Comme nts CHLAMYDIA, NAAT, URINE (test code = 21435) NEGATIVE GONORRHEA, NAAT, URINE (test code = 26108) NEGATIVE Ernesto CevallosHEMOGLOBIN [id number] 00:00:00* Test Item Value Reference Range Interpretation Comme nts HEMOGLOBIN A1 (test code = 2575) 97.3 % HEMOGLOBIN A2 (test code = 2576) 2.7 % HEMOGLOBIN F () (test c ode = 3172) 0.0 % HEMOGLOBIN S (test code = 2724) NONE % HEMOGLOBIN C (test code = 2726) NONE % OTHER HEMOGLOBIN VARIANT (te st code = 06857) NONE DETEC % PATHOLOGIST'S INTERPRETATION (test code = 2577) (NOTE) Ernesto CevallosMATERNAL AFP FOR NTD [id number] 00:00:00* Test Item Value Reference Range Interpretation Comme nts INTERPRETATION (test code = 748004) SCREEN NEGATIVE Neural tube defect risk (trudy t code = 83854) 1: Neural tube defect interpretation (test code = 74806) (NOTE) DATE OF (test code = 2660) 2000 MATERNAL WEIGHT (test code = 2657) 123 LBS INITIAL/REPEAT (test code = 424955) INITIAL FAMILY HISTORY OF NTD (test code = 114242) NO INSULIN DEP. DIABETIC (test code = 2659) NO RACE (test code = 2658) SMOKER? (test code = 852172) NO NUMBER OF GESTATIONS (test code = 74476) 1 GESTATIONAL AGE (test code = 2656) 16.3 WEEKS DETERMINED BY: (test code = 2654) LMP DATE OF LMP (test code = 2652) 02/20/2023 ADJUST AFP M.O.M. (test code = 2661) 0.84 M.O.M. AFP (test code = 41799) 34.6 NG/ML Ernesto CevallosCT/NG, TMA, [id number] 00:00:00* Test Item Value Reference Range Interpretation Comme nts CHLAMYDIA, NAAT, URINE (test code = 00089) NEGATIVE GONORRHEA, NAAT, URINE (test code = 14969) NEGATIVE Ernesto CevallosHIV 1/2 4TH GEN, RFLX [id number] 00:00:00* Test Item Value Reference Range Interpretation Comme nts HIV 1/2 4TH GEN, RFLX CONF ( test code = 3514) NON-REACTIVE Ernesto CevallosHEPATITIS PROFILE (A,B,C)2022-09-03 00:00:00* Test Item Value Reference Range Interpretation Comme nts HEPATITIS A TOTAL AB (test c ode = 2725) REACTIVE HEPATITIS B SURF AG (test co de = 2739) NON-REACTIVE HEP B CORE TOTAL AB (test co de = 2729) NON-REACTIVE HEPATITIS B SURFACE AB (test code = 2737) NON-REACTIVE HEPATITIS C ANTIBODY (test c ode = 1353) NON-REACTIVE INTERPRETATION HEPATITIS A: (test code = 2552) (NOTE) INTERPRETATION HEPATITIS B: (test code = 26203) (NOTE) INTERPRETATION HEPATITIS C: (test code = 92307) (NOTE) Ernesto CevallosHEPATITIS A IgM [REFLEX]2022-09-03 00:00:00* Test Item Value Reference Range Interpretation Comme nts HEPATITIS A IgM (test code = 2728) NON-REACTIVE Ernesto CevallosCBC W/AUTO [id number] 00:00:00* Test Item Value Reference Range Interpretation Comme nts WBC (test code = 1001) 8.2 K/UL RBC (test code = 1002) 4.20 M/UL HEMOGLOBIN (test code = 1003) 12.4 G/DL HEMATOCRIT (test code = 1004) 36.8 % MCV (test code = 1005) 87.6 fL MCH (test code = 1006) 29.5 PG MCHC (test code = 1007) 33.7 G/DL RDW (test code = 1038) 12.0 % NEUTROPHILS (test code = 1008) 67.2 % LYMPHOCYTES (test code = 1010) 23.9 % MONOCYTES (test code = 1011) 6.5 % EOSINOPHILS (test code = 1012) 1.6 % BASOPHILS (test code = 1013) 0.6 % IMMATURE GRANULOCYTES (test code = 1036) 0.2 % NUCLEATED RBCS (test code = 1065) 0.0 /100WBC'S PLATELET COUNT (test code = 1015) 297 K/UL ABSOLUTE NEUTROPHILS (test c ode = 1066) 5.52 K/UL ABSOLUTE LYMPHOCYTES (test c ode = 1067) 1.96 K/UL ABSOLUTE MONOCYTES (test cod e = 1068) 0.53 K/UL ABSOLUTE EOSINOPHILS (test c ode = 1040) 0.13 K/UL ABSOLUTE BASOPHILS (test cod e = 1069) 0.05 K/UL ABS IMMATURE GRANULOCYTES (t est code = 1020) 0.02 K/UL ABS NUCLEATED RBCS (test cod e = 32010) 0.00 K/UL Ernesto CevallosHEMOGLOBIN [id number] 00:00:00* Test Item Value Reference Range Interpretation Comme nts HEMOGLOBIN A1c (test code = 52978) 5.1 % Ernesto CevallosLIPID [id number] 00:00:00* Test Item Value Reference Range Interpretation Comme nts CHOLESTEROL (test code = 2210) 215 MG/DL TRIGLYCERIDES (test code = 2232) 133 MG/DL HDL CHOLESTEROL (test code = 2220) 90 MG/DL CALC LDL CHOL (test code = 2237) 102 MG/DL RISK RATIO LDL/HDL (test cod e = 2238) 1.13 RATIO Ernesto CevallosCOMPREHENSIVE METABOLIC [id number] 00:00:00* Test Item Value Reference Range Interpretation Comme nts GLUCOSE (test code = 2217) 76 MG/DL BUN (test code = 2208) 12 MG/DL CREATININE (test code = 2214) 0.60 MG/DL eGFR (2020 CKD-EPI) (test code = 85240) 132 ML/MIN/1.73 CALC BUN/CREAT (test code = 2235) 20 RATIO SODIUM (test code = 2231) 142 MEQ/L POTASSIUM (test code = 2228) 4.1 MEQ/L CHLORIDE (test code = 2215) 103 MEQ/L CARBON DIOXIDE (test code = 2206) 26 MEQ/L CALCIUM (test code = 2209) 9.6 MG/DL PROTEIN, TOTAL (test code = 2229) 7.7 G/DL ALBUMIN (test code = 2201) 4.8 G/DL CALC GLOBULIN (test code = 2240) 2.9 G/DL CALC A/G RATIO (test code = 2234) 1.7 RATIO BILIRUBIN, TOTAL (test code = 2207) 0.3 MG/DL ALKALINE PHOSPHATASE (test code = 2204) 73 U/L AST (test code = 2218) 27 U/L ALT (test code = 2219) 34 U/L Ernesto CevallosTSH, THIRD [id number] 00:00:00* Test Item Value Reference Range Interpretation Comme nts TSH, THIRD GENERATION (test code = 2821) 3.420 UIU/ML Ernesto [id number] 00:00:00* Test Item Value Reference Range Interpretation Comme nts RPR RESULT (test code = 3501) NON-REACTIVE RPR TITER (test code = 3500) NOT INDIC. TITER Ernesto CevallosCT/NG, TMA, [id number] 00:00:00* Test Item Value Reference Range Interpretation Comme nts CHLAMYDIA, NAAT, URINE (test code = 83865) POSITIVE GONORRHEA, NAAT, URINE (test code = 08746) NEGATIVE Ernesto Hoskins [id number] 04:35:19* Test Item Value Reference Range Interpretation Comme nts APPEARANCE (test code = 2921901050) Hazy Clear A COLOR (test code = 1925077380) Yellow Yellow PH (test code = 2945289345) 4.8-8.0 SP GRAVITY (test code = 3383592578) 1.003-1.030 H GLU U QUAL (test code = 5622293980) Normal Normal BLOOD (test code = 8271654202) Negative Negative KETONES (test code = 8775952474) 5 mg/dL Negative A PROTEIN (test code = 2887-8) Negative Negative UROBILIN (test code = 0199537309) Normal Normal BILIRUBIN (test code = 2926845452) Negative Negative NITRITE (test code = 5593195153) Negative Negative LEUK ESTRADA (test code = 8574960321) Negative Negative RBC/HPF (test code = 7277370622) See_Comment [Automated [employer]] The system which generated this result transmitted reference range: 0 - 3 HPF. The reference range was not used to interpret this result as normal/abnormal. WBC/HPF (test code = 2121768509) See_Comment [Autom[employer]] The system which generated this result transmitted reference range: 0 - 5 HPF. The reference range was not used to interpret this result as normal/abnormal. BACTERIA (test code = 1917046255) Few Negative A MUCOUS (test code = 0715202202) Marked Negative LPF A SQ EPITH (test code = 7456369129) HPF Lab Interpretation (test code = 08073-2) [facility]COMP[facility] (98451)2020-09-03 04:15:17* Test Item Value Reference Range Interpretation Comme nts NA (test code = 4892864473) 139 mmol/L 135-145 K (test code = 3665167340) 3.8 mmol/L 3.5-5.0 CL (test code = 0491282709) 103 mmol/L 98-108 CO2 TOTAL (test code = 8392225044) 27 mmol/L 23-31 AGAP (test code = 2879045618) 2-16 BUN (test code = 1658156057) 15 mg/dL 7-23 GLUCOSE (test code = 5202079659) 101 mg/dL 70-110 CREATININE (test code = 6668378258) 0.53 mg/dL 0.50-1.04 TOTAL BILI (test code = 9540739951) 0.5 mg/dL 0.1-1.1 CALCIUM (test code = 3908325886) 9.3 mg/dL 8.6-10.6 T PROTEIN (test code = 5637496974) 8.3 g/dL 6.3-8.2 H ALBUMIN (test code = 9562190740) 4.9 g/dL 3.5-5.0 ALK PHOS (test code = 6014650539) 76 U/L 34-122 ALTv (test code = 1742-6) 18 U/L 5-35 AST(SGOT) (test code = 1180946425) 29 U/L 13-40 eGFR (test code = 8128052396) mL/min/1.73m2 [place] (test code = [place]) Association of Glomerular Filtration Rate (GFR) and Staging of Kidney Disease* + --+ --+ ------+| GFR (mL/min/1.73 m2) ?| With Kidney Damage ?| ?Without Kidney Damage+ --------+ --------+ +| ?>90 ?| ?Stage one ?| ? Normal ?+ ---+ ---+ -------+| ?60-89 ?| ?Stage two ?| ? Decreased GFR ? + --+ --+ ------+| ?30-59 ?| ?Stage three ?| ? Stage three ? + --+ --+ ------+| ?15-29 ?| ?Stage four ? | ? Stage four ?+ ---+ ---+ -------+| ?<15 (or dialysis) ? ?| ?Stage five ? | ? Stage five ?+ ---+ ---+ -------+ *Each stage assumes the associated GFR level has been in effect for at least three months. ?Stages 1 to 5, with or without kidney disease, indicate chronic kidney disease. Notes: Determination of stages one and two (with eGFR >59mL/min/1.73 m2) requires estimation of kidney damage for at least three months as defined by structural or functional abnormalities of the kidney, manifested by either:Pathological abnormalities or Markers of kidney damage (including abnormalities in the composition of the blood or urine or abnormalities in imaging tests). Lab Interpretation (test code = 16483-1) [facility]anoL[facility] 04:03:33* Test Item Value Reference Range Interpretation Comme nts LIPASE (test code = 2202301718) 98 U/L 0-220 Lab Interpretation (test cod e = 31280-5) Normal [facility]anoPOCT [id number] 04:03:00* Test Item Value Reference Range Interpretation Comme nts POCT PREG (test code = 1605) negative On board controls acceptable with C Line (test code = 3574) present POCT PREG LOT # (test code = 3575) [id number] POCT PREG TEST DATE ( test code = 3576) 2022-03-30 Lab Interpretation (test cod e = 38771-5) [facility] [id number] 03:47:07* Test Item Value Reference Range Interpretation Comme nts WBC (test code = 6690-2) See_Comment [Automated [employer]] The system which generated this result transmitted reference range: 4.50 - 13.50 10*3/?L. The reference range was not used to interpret this result as normal/abnormal. RBC (test code = 789-8) See_Comment [[employer]] The system which generated this result transmitted reference range: 4.10 - 5.10 10*6/?L. The reference range was not used to interpret this result as normal/abnormal. HGB (test code = 718-7) 13.2 g/dL 12.0-16.0 HCT (test code = 4544-3) 39.6 % 36.0-45.0 MCV (test code = 787-2) 86.3 fL 78.0-95.0 MCH (test code = 785-6) 28.8 pg 26.0-32.0 MCHC (test code = 786-4) 33.3 g/dL 32.0-36.0 RDW-SD (test code = 71442-6) 37.8 fL 38.5-49.0 L RDW-CV (test code = 788-0) 12.0 % 11.5-14.0 PLT (test code = 777-3) See_Comment [[employer]] The system which generated this result transmitted reference range: 135 - 361 10*3/?L. The reference range was not used to interpret this result as normal/abnormal. MPV (test code = 45178-7) 10.6 fL 9.4-13.3 NRBC/100 WBC (test code = 0219667729) See_Comment [Autom[employer]] The system which generated this result transmitted reference range: 0.0 - 10.0 /100 WBCs. The reference range was not used to interpret this result as normal/abnormal. NRBC x10^3 (test code = 6044672634) <0.01 See_Comment [[employer]] The system which generated this result transmitted reference range: 10*3/?L. The reference range was not used to interpret this result as normal/abnormal. GRAN MAT (NEUT) % (test code = 770-8) 75.5 % IMM GRAN % (test code = 1626775676) 0.30 % LYMPH % (test code = 736-9) 17.7 % MONO % (test code = 5905-5) 5.1 % EOS % (test code = 713-8) 0.8 % BASO % (test code = 706-2) 0.6 % GRAN MAT x10^3(ANC) (test code = 2575303136) 6.58 10*3/uL 1.50-10.30 IMM GRAN x10^3 (test code = 4042121897) 0.03 10*3/uL 0.00-0.06 LYMPH x10^3 (test code = 731-0) 1.54 10*3/uL 0.70-7.40 MONO x10^3 (test code = 742-7) 0.44 10*3/uL 0.00-0.50 EOS x10^3 (test code = 711-2) 0.07 10*3/uL 0.00-0.40 BASO x10^3 (test code = 704-7) 0.05 10*3/uL 0.00-0.10 Lab Interpretation (test code = 24757-6) Abnormal [facility] History and Physical Notes Date/Time Note Provider Source 2023-11-29 13:57:49 TRIAGE HISTORY & PHYSICAL IDENTIFYING DATA Carmina Huitron is 23 year old, /White, 40w0d, female with LATANYA 11/29/2023, by Last Menstrual Period. : 2001 Primary Care Physician: PATIENT DOES NOT HAVE A PCP CHIEF COMPLAINT sIOL HISTORY OF PRESENT ILLNESS Carmina Huitron is a 23 year old female at 40w0d presenting for scheduled IOL. Denies bleeding, LOF, ctx. Reports good FM. Denies headache, changes in vision, or RUQ pain. PAST OBSTETRIC HISTORY OB History Para Term AB Living 1 SAB IAB Ectopic Multiple Live Births # Outcome Date GA Lbr Alexandru/2nd Weight Sex Delivery Anes PTL Lv 1 Current PAST MEDICAL HISTORY Problem list: Patient Active Problem List Diagnosis Date Noted 40 weeks gestation of 11/29/2023 Obesity (BMI 30-39.9) 11/29/2023 Papanicolaou smear of cervix with low grade squamous intraepithelial lesion (LGSIL) 09/15/2023 Supervision of high risk in second trimester 09/12/2023 Anemia of mother in , antepartum 09/06/2023 Rubella non-immune status, antepartum 09/06/2023 Obesity affecting in third trimester 09/05/2023 Operations: No past surgical history on file. No past medical history on file. CURRENT HEALTH STATUS Medications: Current Facility-Administered Medications Medication Dose Route Frequency Last Rate Last Admin D5W-LR IV infusion 1,000 mL 1,000 mL IV Infusion TITRATE lactated ringers IV infusion 500 mL 500 mL IV Infusion PRN - SEE INSTRUCTIONS lactated ringers IV infusion 700 mL 700 mL Intravenous ONCE lidocaine 1% (PF) (XYLOCAINE) injection 0.3 mL 0.3 mL Infiltration PRN - SEE INSTRUCTIONS lidocaine 1% (XYLOCAINE) 10 mg/mL (1 %) injection 30 mL 30 mL Infiltration PRN - SEE INSTRUCTIONS sodium citrate-citric acid (BICITRA) 500-334 mg/5 mL solution 30 mL 30 mL Oral PRE-PROCEDURE ONCE sodium citrate-citric acid (BICITRA) 500-334 mg/5 mL solution 30 mL 30 mL Oral PRE-PROCEDURE ONCE Allergies and drug reactions: Patient has no known allergies. HOME MEDICATIONS Medications Prior to Admission Medication Sig Dispense Refill Last Dose Iron Fum & P-FA-Vit B & C No.9 (INTEGRA PLUS) 125 mg iron- 1 mg Cap Take 1 capsule by mouth in the morning. 30 capsule 6 SOCIAL HISTORY Tobacco History: Social History Tobacco Use Smoking Status Never Smokeless Tobacco Never Drug History: Social History Substance and Sexual Activity Drug Use Never Alcohol History: Social History Substance and Sexual Activity Alcohol Use Never FAMILY HISTORY Family History Problem Relation Age of Onset Heart Mother No Significant Medical Problems Father No Significant Medical Problems Brother No Significant Medical Problems Maternal Grandmother No Significant Medical Problems Maternal Grandfather No Significant Medical Problems Paternal Grandmother No Significant Medical Problems Paternal Grandfather REVIEW OF SYSTEMS General: negative Constitutional: negative Eyes: negative ENT/Mouth: negative Cardiovascular: negative Respiratory: negative Gastrointestinal:negative Genitourinary: negative Musculoskeletal: negative Skin/breast: negative Neurological: negative Psychiatric: negative Endocrine: negative Hemat/Lymph: negative Allergic/Immuno:none VITAL SIGNS BP: (145)/(90) Temp: -- Temp source: -- Pulse: [84] Resp: -- SpO2: [97 %] Height: -- Weight: [78 kg (171 lb 15.3 oz)] BMI (calculated): [0] PHYSICAL EXAMINATIONS General: patient alert and in no acute distress HEENT: symmetric, negative for masses Lungs: unlabored breathing Cardiology: peripheral pulses intact and regular Abdomen: soft, non-tender, non-distended, no liver, spleen or abnormal masses palpated and Gravid Extremities: no clubbing, cyanosis, or edema Neuro: patient moving all extremities, no facial droop : SVE: 50/-3 REVIEW OF LABORATORY, PATHOLOGY, AND RADIOLOGY DATA Lab results: Type & Screen HIV Hep B Syphilis Chlamydia ABO & RH Date Value Ref Range Status 09/05/2023 O POSITIVE Final No results found for: "HIVMULTIPLEX" No components found for: "HBSHBSAG" Syphilis IgG/IgM Date Value Ref Range Status 10/05/2023 Non-reactive Non-reactive Final C. trachomatis Nucleic Acid Date Value Ref Range Status 10/31/2023 Negative Negative Final IAT Date Value Ref Range Status 09/05/2023 Negative Final Varicella Rubella Glucose Group B Strep CBC VZV IgG antibody Date Value Ref Range Status 09/05/2023 Positive Negative Final Rubella screen IgG Date Value Ref Range Status 09/05/2023 Negative Negative Final No results found for: "CCVU1QQ" No results found for: "CGBS" HGB Date Value Ref Range Status 10/31/2023 11.2 (L) 11.6 - 15.0 g/dL Final HCT Date Value Ref Range Status 10/31/2023 34.0 (L) 35.7 - 45.2 % Final PLT Date Value Ref Range Status 10/31/2023 233 166 - 358 10*3/?L Final Active Hospital Problems Diagnosis Date Noted 40 weeks gestation of 11/29/2023 Obesity (BMI 30-39.9) 11/29/2023 Papanicolaou smear of cervix with low grade squamous intraepithelial lesion (LGSIL) 09/15/2023 07/13/2023 LGSIL with +HPV, repeat 1 year see external records Anemia of mother in , antepartum 09/06/2023 Rubella non-immune status, antepartum 09/06/2023 Obesity affecting in third trimester 09/05/2023 Resolved Hospital Problems No resolved problems to display. Present on Admission: 40 weeks gestation of Anemia of mother in , antepartum Rubella non-immune status, antepartum Papanicolaou smear of cervix with low grade squamous intraepithelial lesion (LGSIL) Obesity affecting in third trimester Obesity (BMI 30-39.9) ASSESSMENT AND PLAN Carmina Huitron is a 23 year old at 40w0d by d/u (21) who presents for sIOL. sIOL - Denies bleeding, LOF, ctx. Reports FM. - FHT nonreactive in Triage, patient repositioned. Will start IVF. - SVE: /-3 - Mode: [place]: irregular - Initial BP: 145/90, repeat 135/88. Will continue to monitor. - Plan: Admit to L&D for sIOL. Antepartum course reviewed - 1 h unk, sero neg, R NI, VZV I, O+/neg, GBS neg, Pap LSIL 07/13/23 - H/H, plt: 11.2 / 34.0, 233 on 10/31/23 - PP contraception: OCP - [place] [facility] Fetus - Presentation on admission: cephalic - EFW: 3381g, 31% - Posterior placenta - FHT nonreactive - Normal anatomy scan Placenta Accreta Screening Prior ? : No Prior Uterine Surgery?: No Placenta low lying/previa in current ? : No Screening outcome: Negative screening. PLAN: Admit to L&D for sIOL. Marge Mendoza MSN, ENTRY LEVEL ACCOUNT REPRESENTATIVE, FROZEN PIE MAKER-C, working with Trang Castillo APRN, [facility]- Informed consent discussed with the patient, including: condition, proposed care, treatments and services, alternative forms of treatment, and risks of no treatment. Details discussed around the procedures to be used, and the risks and hazards involved, potential benefits, and side effects of the patient s proposed care, treatment, and services; the likelihood of the patient achieving his or her goals; and any potential problems that might occur during recuperation. Reasonable alternative also discussed with the patient s proposed care, treatment, and services. The discussion encompasses risks, benefits, and side effects related to the alternative and risks related to not receiving the proposed care, treatment, and services. Associated attestation - Lizbeth Jenkins MD - 11/30/2023 2:07 PM CDT I personally saw and examined the patient on 11/30/2023 and agree with TAMMI Dickey's assessment and plan. I actively participated in the decision-making process. Please, see Ms. Mendoza's note for additional details. [facility] Procedure Notes Date/Time Note Provider Source 2023-11-30 00:20:08 Associated Order(s): Central Neuraxial Block Central Neuraxial Block Date/Time: 11/30/2023 12:20 AM Performed by: Kieran Reid MD Authorized by: Be Lam MD Patient Location: OB Reason for Block: OB request, Patient request, Labor analgesia, Surgical anesthesia and Post-op pain management Staff: Anesthesiologist: Be Lam MD Resident/PARTS SALESMAN: Kieran Reid MD Performed by: resident/PARTS SALESMAN Preanesthetic Checklist: patient identified, IV checked, risks and benefits explained, monitors and equipment checked, timeout performed, pre-op evaluation, site marked and anesthesia consent Procedure: Type of Neuraxial: Epidural Epidural Description: 1st attempt Sterility Prep cap, drape, gloves, hand hygiene and mask Patient Position: sitting Prep: Betadine and patient draped Monitoring: heart rate, continuous pulse ox, heart rate / toco and NIBP Location: lumbar (1-5) Lumbar: L3-L4 Approach: midline Technique: CRISTINA air and catheter Guidance with: landmark technique} Epidural/Spinal Copeland and/or Catheter: Epidural/Spinal Kit: BBraun Needle Type: Tuohy Needle Gauge: 17 G Needle Length: 3.5 in (8.89 cm) Needle Insertion Depth: 8 Catheter Type: multiport Catheter Size: 19 G Catheter at Skin Depth: 13 Number of Attempts: 1 Test Dose: lidocaine 1.5% with epinephrine 1-to-200,000 Dose: 5 cc Catheter Securement Method: surgical tape, Tegaderm, clear occlusive dressing and liquid medical adhesive Assessment: Block Outcome: patient tolerated procedure well Procedure Assessment: patient tolerated procedure well with no complications Notes: Patient consented and positioned sitting upright with instructions given regarding positioning and maintaining a sterile field. Patient prepped and draped in sterile fashion. Epidural kit opened and medications prepared utilizing sterile protocol. CRISTINA to Saline was used midline at L3L4 interspace. CRISTINA was at 8 cm attempts x 1. Catheter threaded smoothly, taped at skin at 13 cm. Negative aspiration of blood or CSF x 3. Negative Test dose. Epidural catheter secured in place using tegederm and tape while maintaining insertion site sterility. Pumps settings are continuous 10cc/hr PCEA 4cc- 15 mins lockout. 5 ml bolus was given initially. Patient instructed to lay back down on back and given instructions on FEATHER SEPARATOR functionality. Fall precautions provided, patient vocalized understanding and all questions answered. AN-ANESTHESIOLOGY [facility] 2023-11-29 16:16:37 Images from the original note were not included. Carmina Huitron is a 23 year old female 40w0d Noguera insertion: Insertion date and time: 11/28 1600 Noguera catheter inserted through cervix in sterile fashion digitally by Dave Perry MD and inflated with 60 cc sterile saline. Noguera bulb firmly in place inside internal os. Catheter taped to patient leg under traction. Patient tolerated procedure well. Please use the table below for: SVE /-3 CERVIX: Consistency : moderately soft; Position: posterior, Station: -3 Roopa Perry MD OG-OBSTETRICS & GYNECOLOGY [facility] Notes Date/Time Note Provider Source 2024-02-02 10:35:07 Called pt, left vm, stating letter in mychart. Letter sent. Aster Casper RN 02/02/24 10:35 AM Aster Casper RN [facility] 2024-02-02 10:26:19 Carmina Huitron is a 23 year old female Patient delivered 11/30/2023 and is needing a work release letter to return to work tonight to be added to My Chart. Please call [phone] (home) Jocelynn Ag [facility] 2023-12-01 14:00:00 This note was copied from a baby's chart. 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 No Breast Assessment Breast Assessment Initial Symmetry Symmetrical Size L (D-DD) Shape Rounded Other Soft Scars on breast: No Nipple & Areola Assessment Left Areola Pliable Right Areola Pliable Left Nipple Colostrum visible;Intact;Everted Right Nipple Colostrum visible;Intact;Everted Literature Resources Resources guide;[place] channel Education 6 months exclusive , up to and beyond 1 year with complimentary foods;Infant hunger cues;On-demand feeds at least 8 or more over 24 hours;Diaper counts/color;Benefits of breastmilk;Hand expression;Risk of formula supplementation;Delay of pacifier/artificial nipples up to 4 weeks;Benefits of skin to skin contact;Encouraged rooming-in;Waking techniques;Signs of an effective latch; stomach size;Calming techniques;2nd day/growth spurt cluster feeds;Position changes;Breaking seal;Lactogenesis;Burping; Benefits of breast massage and hand expression;Engorgement signs and treatment;Risks of mastitis and signs, seek medical attention immediately;How to obtain pump for after discharge Handouts given Kazakh Grinding Wheel Facer Observation Pumping No Reported;Mom states infant latches well with no pain Interventions Taught hand expression;Motherlove nipple cream Mother demonstrated teach back of Breast massage and hand expression Follow up Mom will call staff;[facility] warmline Recommended Feeding Plan Recommended feeding plan On-demand , 8-12 times in 24 hours not to exceed 6 hours between feeds;Frequent [id number]-ml-wvfp time with parents OTHER $ SERVICES Initial Mom says baby has been latching well Yudy Mahmood RN,BSN,IBCLC Pager - [phone] Yudy Mahmood RN [facility] 2023-12-01 13:53:37 Problem: Falls, Risk of Goal: Absence of falls Outcome: Adequate for discharge Problem: Discharge Planning - Goal: Adequate for discharge Outcome: Adequate for discharge Goal: Mood stable Outcome: Adequate for discharge Problem: Breast-feeding - Ineffective Goal: Effective breast-feeding Outcome: Adequate for discharge [facility] 2023-12-01 05:44:57 Problem: Falls, Risk of Goal: Absence of falls Outcome: Progressing as expected Problem: Discharge Planning - Goal: Adequate for discharge Outcome: Progressing as expected Goal: Mood stable Outcome: Progressing as expected Problem: Breast-feeding - Ineffective Goal: Effective breast-feeding Outcome: Progressing as expected T Melanie Pugh RN [facility] 2023-11-30 15:49:03 Problem: Falls, Risk of Goal: Absence of falls Outcome: Progressing as expected Problem: Discharge Planning - Goal: Adequate for discharge Outcome: Progressing as expected Goal: Mood stable Outcome: Progressing as expected [facility] 2023-11-30 10:36:59 Patient: Carmina Huitron Procedure Summary Date: 11/29/23 Room / Location: Anesthesia Start: 4 Anesthesia Stop: 11/30/23 1034 Procedure: CENTRAL NEURAXIAL BLOCK Diagnosis: Scheduled Providers: Responsible Provider: Loni Ness MD Anesthesia Type: Epidural ASA Status: 2 Anesthesia Type: No value filed. Last vitals BP 111/78 (11/30/23 0945) Temp Pulse 73 (11/30/23 0945) Resp SpO2 100 % (11/30/23 0945) No notable events documented. Anesthesia Post Evaluation Patient location during evaluation: bedside Patient participation: complete - patient participated Level of consciousness: awake and alert Pain management: satisfactory to patient Airway patency: patent Cardiovascular status: acceptable and blood pressure returned to baseline Respiratory status: acceptable Hydration status: acceptable Comments: Anesthesia LEROY Post Operative Faculty Note Date of service: 11/30/2023 Patient is s/p labor epidural placement and removal. Patient examined, patient awake. Patient participation in post anesthesia evaluation: Block not fully resolved, as expected. Patient participated otherwise. Patient advised about fall precautions. Vital Signs: BP 111/78 | Pulse 73 | Temp 37.2 ?C (98.9 ?F) (Axillary) | Resp 18 | Ht 1.6 m (5' 3") | Wt 78 kg (171 lb 15.3 oz) | LMP 02/22/2023 (Approximate) | SpO2 100% | Unknown | BMI 30.46 kg/m? Pain: Scale used: 0 - 10 Ratin Nausea and vomiting: Not present. Post operative/post procedure hydration status: Euvolemic. Post-operative course: Block resolving appropriately, and patient advised about fall precautions as noted above. Complications: No apparent complications Loni Ness MD 11/30/2023 10:37 AN-ANESTHESIOLOGY ANESTHESIOLOGIST [facility] 2023-11-30 09:46:52 Problem: Intrapartum process (including labor pain) Goal: Absence of or reduction of complications of labor 11/30/2023945 by Aye Almonte RN Outcome: Progressing as expected 11/30/2023944 by Aye Almonte RN Outcome: Progressing as expected Goal: Able to cope with pain 11/30/2023945 by Aye Almonte RN Outcome: Progressing as expected 11/30/2023944 by Aye Almonte RN Outcome: Progressing as expected Goal: Adequate to move to next level of care 11/30/2023945 by Aye Almonte RN Outcome: Progressing as expected 11/30/2023944 by Aye Almonte RN Outcome: Progressing as expected Goal: Reduction in pain sensation 11/30/2023945 by Aye Almonte RN Outcome: Progressing as expected 11/30/2023944 by Aye Almonte RN Outcome: Progressing as expected Problem: Falls, Risk of Goal: Absence of falls Outcome: Progressing as expected Aye Almonte RN [facility] 2023-11-30 09:38:11 DELIVERY BY SPONTANEOUS VAGINAL DELIVERY Delivery Date: 11/30/2023 Delivery Time: 8:41 AM Review the Delivery Report for details. The patient was admitted to the Labor & Delivery unit for IOL at 40w1d. Delivery Physician: Roopa Perry MD OB Faculty: Rosa Syed MD Exercise Rider Resident: Marianela Chaudhry MD Intrapartum Anesthesia/Analgesia: Epidural Mode of Delivery: Delivery of sandhu fetus with cephalic presentation Fetus Spontaneous vaginal delivery of head with cephalic position, occipital anterior. As the head crowned and distended the perineum, no episiotomy was performed. A blue towel was used to protect the perineum as the head crowned and delivered. The other hand was used to exert pressure on the occiput to control the delivery of the head. The perineum was pushed with a towel-draped hand as the head and mouth was delivered over the perineum. The head was allowed to rotate externally to achieve natural body posture. Examination of neck revealed nuchal cord, which was Loose umbilical cord - reduced. The shoulder was delivered by gentle downward traction applied to head and downward traction for the delivery of anterior shoulder. This was followed by upward traction with delivery of posterior shoulder and body. A normal, female was delivered. The umbilical cord was clamped, cut and the was handed off the field to the circulating nurse. The pediatricians were at the stand to evaluate the new born. Placenta Placenta was delivered spontaneously while the abdominal hand lifted the uterus cephalad and other hand keeping the umbilical cord slightly taut. Laceration Laceration Repair: Bilateral vaginal sidewall lacerations and deep hymenal laceration repaired with 2-[address]-1. Left labial sidewall repaired with 2-0 chromic on a SH needle. A single figure of 8 stitch was thrown at the hymenal ring. Lacerations hemostatic following repair. Fourth Stage Fourth stage of labor was managed by uterine massage with abdominal hand and infusion 30 units of pitocin mixed with intravenous fluid at a rate of 600cc/kg/hr. EBL: 350 ml APGARs: 8 , 9 Weight: 3150 g Complications: none Roopa Perry MD 11/30/23 9:38 AM Associated attestation - Rosa Syed MD - 11/30/2023 12:20 PM CDT I was supervising [facility] faculty present for this procedure. I was present for all narayan portions of the procedure. I have attached an additional note if there were special circumstances during this procedure. [facility] 2023-11-30 00:22:13 Name/ MRN / Age / Gender: Carmina Huitron, [id number] 23 year old female BMI: Estimated body mass index is 30.46 kg/m? as calculated from the following: Height as of this encounter: 1.6 m (5' 3"). Weight as of this encounter: 78 kg (171 lb 15.3 oz). Allergies: Patient has no known allergies. Last Vitals: BP Readings from Last 1 Encounters: 11/30/23 131/81 Pulse Readings from Last 1 Encounters: 11/30/23 91 SpO2 Readings from Last 1 Encounters: 11/30/23 100% Date of Surgery: 11/29/2023 - 11/30/2023 Surgeon: * No surgeons listed * Procedure: CENTRAL NEURAXIAL BLOCK OR Location: [place] ANESTH[facility] OUT OF OR - OR LOCATION Anesthesia Preop Eval (physical exam) Anesthesia Preop: Chart Review and Xuob-ct-Cmpk [facility] Communication: Carmina Huitron is a 23 year old female with a history as below No past medical history on file. NPO Status Verified Anesthesia History Anesthesia History Negative Previous Anesthetics/Airways Cardiovascular Negative Cardiac ROS Comments: BP Readings from Last 4 Encounters: 11/30/23 : 131/81 11/21/23 : 110/72 11/14/23 : 115/70 10/31/23 : 118/72 Pulmonary Negative Pulmonary ROS Comments: Tobacco Use: Low Risk (11/29/2023) Patient History Smoking Tobacco Use: Never Smokeless Tobacco Use: Never Passive Exposure: Never Neuro/Musculoskeletal Negative Neuro/Musculosketal ROS GI/Hepatic Negative GI/Hepatic ROS Hematology Negative Hematology ROS Comments: HGB (g/dL) Date Value 11/29/2023 10.6 (L) 11/29/23 2111 PLT 176 Renal Negative Renal ROS Comments: CREATININE (mg/dL) Date Value 11/29/2023 0.39 (L) K (mmol/L) Date Value 09/02/2020 3.8 Skin Negative Skin ROS (+) Current IV access Endo/Other Negative Endo/Other ROS Comments: No results found for: "[id number]" Other EDGE RUNNER Comments: @ 40w1d Carmina Huitron is a 23 year old at 40w0d by d/u (21) who presents for sIOL. sIOL - Denies bleeding, LOF, ctx. Reports FM. - FHT nonreactive in Triage, patient repositioned. Will start IVF. - SVE: /-3 - Mode: [place]: irregular - Initial BP: 145/90, repeat 135/88. Will continue to monitor. - Plan: Admit to L&D for sIOL. Antepartum course reviewed - 1 h unk, sero neg, R NI, VZV I, O+/neg, GBS neg, Pap LSIL 07/13/23 - H/H, plt: 11.2 / 34.0, 233 on 10/31/23 - PP contraception: OCP - [place] [facility] Fetus - Presentation on admission: cephalic - EFW: 3381g, 31% - Posterior placenta - FHT nonreactive - Normal anatomy scan Pediatric Preoperative Medication Instructions Continue taking all prescribed medications except: AMRIT inhibitors, ARBs, diuretics, all oral diabetes medications Anticoagulant Therapy: Defer to surgeons Insulin: Take 1/2 dose the night prior to surgery. Hold on DOS. Phentermine: Alert [facility] anesthesiologist SGLT2 Inhibitors: "gliflozins" to be held for 3 days prior to elective surgeries GLP1 Agonosit: stop 7 days prior to surgery MAC Cases: Continue taking AMRIT inhibitors and ARBs ASA Classification ASA: 2 Labs: Chemistry - CBC 11/29/2023 - - - - 14.60 (H) 10.6 (L) 176 - - 0.39 (L) 31.8 (L) eGFR: 144.6 Date: 11/29/2023 ANC: 12.17 (H) Date: 11/29/2023 LFTs 11/29/2023 Coags AST: 23 AP: - Prot: - Ca: - PT: - Date: - ALT: 13 T Shane: - Alb: - PTT: - Date: - PO4: - Date: - INR: - Date: - Cardiac Endocrine & other pBNP: - Date: - A1C: - Date: - Trop I: - Date: - POCT A1C: - Date: - CK: - Date: - TSH: - Date: - CKMB: - Date: - FT4: - Date: - LDL: - Date: - Lact: - Date: - Procal: - Date: - Respiratory -|-|-|-|- D-dimer: - ABG Date: - Date: - Miscellaneous Type and Screen: O POSITIVE Antibody: Negative Date: 11/29/2023 POCT : Positive Date: 09/05/2023 Current Medications: No outpatient medications have been marked as taking for the 11/29/23 encounter (Hospital Encounter). Previous Surgeries: No past surgical history on file. 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 I discussed the anesthetic plan with the patient and/or family, including the risks, benefits, and alternatives. I answered all questions and verified consent, and ID. The patient/family agrees with the plan and desires to proceed with the procedure. AN-ANESTHESIOLOGY ANESTHESIOLOGIST [facility] 2023-11-29 21:27:29 Problem: Intrapartum process (including labor pain) Goal: Absence of or reduction of complications of labor Outcome: Progressing as expected Goal: Able to cope with pain Outcome: Progressing as expected Goal: Adequate to move to next level of care Outcome: Progressing as expected Goal: Reduction in pain sensation Outcome: Progressing as expected Ann Kramer RN [facility] 07:56:24 Patient informed of results and new orders, verbalized understanding. Ann Wheeler [facility]2024-05-09 07:04:33 Please call patient and let her know I erx diflucan for vaginal yeast infection. T [facility]
[2024-07-05] MEDS ORDERED: MORPHINE 2 MG/ML SYR ONE (01:34)
[2024-07-05] MEDS ORDERED: NA CHLORIDE 0.9% 1,000 ML ONE ×2 (01:35→04:26)
[2024-07-05] MEDS ORDERED: ONDANSETRON 4 MG/2 ML VIAL ONE (01:35)
[2024-07-05] MEDS ORDERED: NA CHLORIDE 0.9% 100 ML ONE (02:14)
[2024-07-05] MEDS ORDERED: TRANEXAMIC ACID 1,000 MG/10 ML VIAL IV ONE (02:14)
[2024-07-05] MEDS ORDERED: KETOROLAC 30 MG/ML INJ ONE (03:11)
[2024-07-05] MEDS ORDERED: MORPHINE 4 MG/ML SYR ONE (03:12)
[2024-07-05 03:15] LABS: Absolute Basophils 0.1 K/uL (0-0.5); Absolute Eosinophils 0.1 K/uL (0-0.5); Absolute Lymphocytes (CBC) 1.6 K/uL (0.7-4.9); Absolute Monocytes 0.6 K/uL (0.1-1.3); Absolute Neutrophil 8.1 K/uL (1.8-8.0); Basophils % 0.5 % (0-1.3); Eosinophils % 1.3 % (0-4.4); Hemoglobin 12.4 g/dL (12.0-15.0); Lymphocytes % 15.3 % (15.3-44.8); MCH 29.3 pg (27.0-35.0); MCHC 34.5 g/dL (32.0-36.0); MCV 84.7 fL (80-100); MPV 9.8 fL (7.6-11.3); Monocytes % 5.7 % (3.3-12.3); Neutrophils % 77.2 % (41.7-73.7); Platelets 232 thou/uL (152-406); RBC Red Blood Cell Count 4.25 M/uL (3.86-4.86); Red Cell Distribution Width 13.3 % (12.1-15.2)
[2024-07-05 03:20] LABS: PT Prothrombin Time 12.1 SECONDS (10.0-13.0); Protime INR 1.06
[2024-07-05 03:35] LABS: Albumin 3.5 g/dL (3.4-5.0); Albumin/Globulin Ratio 0.9 (1.1-1.8); Anion Gap 13.6 mEq/L (5.0-15.0); Bilirubin Total 0.4 mg/dL (0.2-1.0); Globulin 3.9 g/dL (2.3-3.5); Potassium 4.6 mEq/L (3.5-5.1); Protein, Total 7.4 g/dL (6.4-8.2)
--- NOTE | 2024-07-05 05:44 | ER ---
Nurse's Notes [facility] Name: Carmina Shanks Age: 23 yrs Sex: Female : 2000 Arrival Date: 07/05/2024 Time: 00:33 Bed 13 Private MD: Diagnosis: Incomplete spontaneous with other complications;Uterine hemorrhage Presentation: 07/05 01:24 Chief complaint: Patient states: PT STATES POSS MISCARRIAGE, BEGAN BLEEDING THIS br2 MORNING. C/O LOWER AB PAIN AND CONTINUES TO HAVE VAGINAL BLEEDING WITH CLOTS. PT IS PALE ON ER ARRIVAL. Coronavirus screen: Client denies travel out of the [place] in the last 14 days. Ebola Screen: Patient negative for fever greater than or equal to 101.5 degrees Fahrenheit, and additional compatible Ebola Virus Disease symptoms Patient denies exposure to infectious person. Initial Sepsis Screen: Does the patient meet any 2 criteria? No. Patient's initial sepsis screen is negative. Does the patient have a suspected source of infection? No. Patient's initial sepsis screen is negative. Risk Assessment: Do you want to hurt yourself or someone else? Patient reports no desire to harm self or others. Onset of symptoms was July 04, 2024. 01:24 Method Of Arrival: Wheelchair br2 01:24 Acuity: LISETTE 3 br2 Triage Assessment: :26 General: Appears uncomfortable, Behavior is calm, cooperative. Pain: Complains of pain br2 in right lower quadrant and left lower quadrant. Neuro: Level of Consciousness is awake, alert, obeys commands, Oriented to person, place, time, situation. Cardiovascular: Capillary refill < 3 seconds. Respiratory: Airway is patent Respiratory effort is even, unlabored, Respiratory pattern is regular, symmetrical. GI: Reports lower abdominal pain, nausea. : Reports vaginal bleeding that is brown, with clots. Derm: No signs and/or symptoms reported regarding the dermatologic system. Musculoskeletal: No signs and/or symptoms reported regarding the musculoskeletal system. SURVEY METHODOLOGIST: 01:26 2, Living 1, LMP 04/25/2024, unknown br2 Historical: - Allergies: : No Known Allergies; br2 - Immunization history:: Adult Immunizations up to date. - Infectious Disease History:: Denies. - Social history:: Smoking status: Patient denies any tobacco usage or history of. - Family history:: not pertinent. Screenin:24 [facility] ED Fall Risk Assessment (Adult) History of falling in the last 3 months, br2 including since admission No falls in past 3 months (0 pts) Confusion or Disorientation No (0 pts) Intoxicated or Sedated No (0 pts) Impaired Gait No (0 pts) Mobility Assist Device Used No (0 pt) Altered Elimination No (0 pt) Score/Fall Risk Level 0 - 2 = Low Risk Oriented to surroundings. Abuse screen: Denies threats or abuse. Denies injuries from another. Nutritional screening: No deficits noted. Tuberculosis screening: No symptoms or risk factors identified. Assessment: 02:59 Reassessment: PT RETURNED FROM US. ASSUMED CARE OF PT. VS STABLE. BOYFRIEND AT BEDSIDE. jj7 ORDERED MED GIVEN. C/O PAIN. STATES PAIN MEDS ARE WEARING OFF. General: Appears in no apparent distress. comfortable, Behavior is calm, cooperative, appropriate for age. General: Appears ill, PALE. Pain: Complains of pain in right lower quadrant and left lower quadrant Pain currently is 6 out of 10 on a pain scale. GI: Abdomen is tender to palpation in right lower quadrant and left lower quadrant Reports lower abdominal pain, cramping. 02:59 : Reports vaginal bleeding that is bright red, with clots, heavy flow. jj7 05:30 GI:. : Vaginal discharge is bloody. jj7 06:03 Reassessment: PT SITTING IN BED ON PHONE. NO DISTRESS OR PAIN AT THIS TIME. VS STABLE. jj7 06:25 Reassessment: REPORT GIVEN TO MAKAYLA GONZALEZ. jj7 Vital Signs: 01:24 BP 92 / 56; Pulse 101; Resp 18; Temp 97.6; Pulse Ox 99% on R/A; Weight 63.5 kg; Height br2 5 ft. 3 in. ; Pain 6/10; 02:59 BP 106 / 69; Pulse 74; Resp 18; Pulse Ox 100% ; Pain 6/10; jj7 04:00 BP 105 / 59; Pulse 69; Resp 20; Pulse Ox 99% ; jj7 05:00 BP 102 / 62; Pulse 71; Resp 18; Pulse Ox 99% ; jj7 06:02 BP 103 / 61; Pulse 83; Resp 17; Pulse Ox 100% ; jj7 01:24 Body Mass Index 24.80 (63.50 kg, 160.02 cm) br2 01:24 Pain Scale: Adult br2 02:59 Pain Scale: Adult jj7 Giancarlo Coma Score: 01:31 Eye Response: spontaneous(4). Motor Response: obeys commands(6). Verbal Response: sp4 oriented(5). Total: 15. ED Course: 00:37 Patient arrived in ED. gm2 00:53 Christian Porter MD is Attending Physician. sp4 01:23 Esthela Willson, CARLOS is Primary Nurse. br2 01:24 Patient has correct armband on for positive identification. Bed in low position. Call br2 light in reach. Side rails up X 1. Provided Education on: PLAN OF CARE. 01:24 Inserted saline lock: 20 gauge in left Blood collected. Flushed with 10 mL NS. br2 01:26 Triage completed. br2 01:26 Arm band placed on right wrist. br2 02:39 US OB Limited In Process Unspecified. EDMS 02:58 Lipase Sent. jj7 02:58 CMP Sent. jj7 02:58 CBC with Diff Sent. jj7 02:58 PT-INR Sent. jj7 02:59 Type And Screen Sent. jj7 02:59 HCG-Quantitative Sent. jj7 05:25 Assist provider with pelvic exam: Set up pelvic tray. Performed by Christian oPrter MD jj7 Patient tolerated well. 05:41 initiated transfer with [facility] spoke with Keturah brandt patient was accepted to [facility] \T\[id number], patient will go to L\T\D triage report# [phone]. 05:52 initiated transport with [place] spoke with Kumar patient accepted for transport DARNELL aguilar 15 mins. 06:26 Patient transferred, IV remains in place. jj7 Administered Medications: 01:46 Drug: NS 0.9% IV 1000 ml IV at 1 bolus Per protocol; to be given as a bolus over 60 br2 minutes Route: IV; Rate: 1 bolus; Site: left hand; 03:30 Follow up: IV Status: Completed infusion jj7 01:46 Drug: Ondansetron IVP 4 mg IVP once; over 2 minutes Route: IVP; Site: left hand; br2 03:15 Follow up: Response: Nausea is decreased jj7 01:46 Drug: morphine IVP or IV 2 mg IVP once over 4 mins Route: IVP; Infused Over: 4 mins; br2 Site: left hand; 03:15 Follow up: Response: Pain is decreased jj7 02:58 Drug: tranexamic acid 1000 mg IV at calculated rate once; administer at a rate not to jj7 exceed 100 mg per min Route: IV; Rate: calculated rate; Site: left hand; 03:08 Follow up: IV Status: Completed infusion jj7 03:15 Drug: morphine IVP or IV 4 mg IVP once over 4 mins Route: IVP; Infused Over: 4 mins; jj7 Site: left wrist; 04:30 Follow up: Response: Marked relief of symptoms; Pain is decreased jj7 03:15 Drug: Ketorolac IVP 30 mg IVP once Route: IVP; Site: left hand; jj7 04:30 Follow up: Response: Marked relief of symptoms; Pain is decreased jj7 04:25 Drug: NS 0.9% IV 1000 ml IV at 1000 ml once; to be given as a bolus over 60 minutes jj7 Route: IV; Rate: 1000 ml; Site: left wrist; 06:21 Follow up: IV Status: Completed infusion jj7 06:21 Not Given (Physician Discretion): methylergonovine0.2 mg PO once jj7 06:21 Drug: Oxytocin IM 10 units IM once Route: IM; Site: right deltoid; jj7 06:21 Follow up: Response: No adverse reaction jj7 Medication: 06:25 VIS not applicable for this client. jj7 Outcome: 05:44 ER care complete, transfer ordered by MD. [email or web address] 06:25 Transferred by ground EMS to [facility], Transfer form jj7 completed. X-rays sent w/ patient. 06:25 Condition: stable 06:26 Patient left the ED. jj7 Signatures: Dispatcher [employer] Ngozi Hall RN RN jj7 Christian Porter MD MD sp4 Nuha Good gm2 Fatuma Rivera Belinda RN RN br2 Corrections: (The following items were deleted from the chart) 03:07 02:58 ABO/RH TYPING+BB.LAB.BRZ drawn and sent. jj7 EDMS
--- NOTE | 2024-07-05 05:44 | EDPHYS ---
Physician Documentation [facility] Name: Carmina Shanks Age: 23 yrs Sex: Female : 2000 Arrival Date: 07/05/2024 Time: 00:33 Bed 13 Private MD: ED Physician Christian Porter HPI: 07/05 00:53 This 23 yrs old Female presents to ER via Unassigned with complaints of Low sp4 Back Pain, Vaginal Bleeding. 01:31 Patient is -0-0-1 LMP 04/25/2024 EGA 10 weeks 1 day presents with acute onset sp4 moderate vaginal bleeding starting 2 hours ago. This is associated with pelvic pain.. 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 - Infectious Disease History:: Denies. - Social history:: Smoking status: Patient denies any tobacco usage or history of. - Family history:: not pertinent. ROS: 01:31 Constitutional: Negative for fever, chills, and weight loss, Eyes: Negative for injury, sp4 pain, redness, and discharge, ENT: Negative for injury, pain, and discharge, : Positive for pelvic pain and heavy vaginal bleeding 01:31 All other systems are negative, Exam: 01:31 Constitutional: This is a well developed, well nourished patient who is awake, pale sp4 appearing and ill-appearing but nontoxic Head/Face: Normocephalic, atraumatic. Eyes: Pupils equal round and reactive to light, extra-ocular motions intact. Lids and lashes normal. Conjunctiva and sclera are not injected. Cornea within normal limits. Periorbital areas with no swelling, redness, or edema. ENT: Nares patent. No nasal discharge, no septal abnormalities noted. Tympanic membranes are normal and external auditory canals are clear. Oropharynx with no redness, swelling, or masses, exudates, or evidence of obstruction, uvula midline. Mucous membranes moist. Neck: Trachea midline, no thyromegaly or masses palpated, and no cervical lymphadenopathy. Supple, full range of motion without nuchal rigidity, or vertebral point tenderness. Chest/axilla: Normal chest wall appearance and motion. Nontender with no deformity. No lesions are appreciated. Cardiovascular: Regular rate and rhythm with a normal S1 and S2. No gallops, murmurs, or rubs. Normal PMI, no JVD. No pulse deficits. Respiratory: Lungs have equal breath sounds bilaterally, clear to auscultation and percussion. No rales, rhonchi or wheezes noted. No increased work of breathing, no retractions or nasal flaring. Abdomen/GI: Soft, with normal bowel sounds. No distension or tympany. No guarding or rebound. No evidence of tenderness throughout. Back: No spinal tenderness. No costovertebral tenderness. Skin: Warm, dry with normal turgor. Normal color with no rashes, no lesions, and no evidence of cellulitis. MS/ Extremity: Pulses equal, no cyanosis. Neurovascular intact. Full, normal range of motion. Neuro: Awake and alert, GCS 15, oriented to person, place, time, and situation. Cranial nerves II-XII grossly intact. Motor strength 5/5 in all extremities. Sensory grossly intact. Psych: Awake, alert, with orientation to person, place and time. 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 , Vital Signs: 01:24 BP 92 / 56; Pulse 101; Resp 18; Temp 97.6; Pulse Ox 99% on R/A; Weight 63.5 kg; Height br2 5 ft. 3 in. ; Pain 6/10; 02:59 BP 106 / 69; Pulse 74; Resp 18; Pulse Ox 100% ; Pain 6/10; jj7 04:00 BP 105 / 59; Pulse 69; Resp 20; Pulse Ox 99% ; jj7 05:00 BP 102 / 62; Pulse 71; Resp 18; Pulse Ox 99% ; jj7 06:02 BP 103 / 61; Pulse 83; Resp 17; Pulse Ox 100% ; jj7 01:24 Body Mass Index 24.80 (63.50 kg, 160.02 cm) br2 01:24 Pain Scale: Adult br2 02:59 Pain Scale: Adult j7 Atlantic Coma Score: 01:31 Eye Response: spontaneous(4). Motor Response: obeys commands(6). Verbal Response: sp4 oriented(5). Total: 15. MDM: 00:58 Medical Screening Exam initiated sp4 04:31 ED course: . sp4 05:09 ED course: EXAM: US First Trimester , Transabdominal and Transvaginal and US sp4 DuplexArterial/Venous of the Pelvis, Complete CLINICAL HISTORY: The patient is 23 years old and is Female; Abdomen pain, heavy vaginal bleeding. 10 weeks by history TECHNIQUE: Real-time transabdominal and transvaginal obstetrical ultrasound of the maternal pelvis and a first trimester with image documentation. Transvaginal imaging was used for better evaluation of the fetus and adnexa. Real-time duplex ultrasound scan of the arterial and venous flow of the pelvis with color Doppler flow and spectral waveform analysis. COMPARISON: No relevant prior studies available. FINDINGS: Gestation: No intrauterine gestational sac, yolk sac or pole. Placenta/amniotic fluid: Cannot be adequately evaluated due to the early gestational age. Uterus/cervix: Thickened endometrium with heterogeneous echogenicity, 2.3 cm. Uterus is 10.0 x 4.5 x 6.6 cm. No myometrial mass. Right ovary: Right ovary 2.1 x 1.7 x 1.6 cm. No torsion. Left ovary: Left ovary 1.8 x 1.8 x 1.4 cm. No torsion. Free fluid: No free fluid. IMPRESSION: No intrauterine . Thickened endometrium with heterogeneous echogenicity, 2.3 cm. Based on the history provided, the findings are consistent with spontaneous miscarriage in progress. Clinical correlation with serial quantitative hCG levels and followup ultrasound recommended. . 05:32 ED course: Shannon Cheema, MSN, [employer]EL[employer]. sp4 05:40 Differential diagnosis: strain, fracture, UTI, Miscarriage. Data reviewed: vital signs, sp4 nurses notes, lab test result(s), radiologic studies, ultrasound. Consideration of Admission/Observation Escalation of care including admission/observation considered. ED course: Patient accepted for transfer to Dr. Ambrocio to [facility].. 03 01:24 Order name: CBC with Diff; Complete Time: 03:32 sp4 03 01:24 Order name: CMP; Complete Time: 03:36 sp4 07/05 01:24 Order name: Lipase; Complete Time: 03:36 sp4 07/05 01:25 Order name: PT-INR; Complete Time: 03:32 sp4 07/05 01:30 Order name: Type And Screen; Complete Time: 04:31 sp4 07/05 02:29 Order name: HCG-Quantitative; Complete Time: 04:31 sp4 07/05 05:23 Order name: CBC w/o diff sp4 07/05 01:24 Order name: IV Saline Lock; Complete Time: 01:46 sp4 07/05 01:24 Order name: Labs collected and sent; Complete Time: 01:46 sp4 Administered Medications: 01:46 Drug: NS 0.9% IV 1000 ml IV at 1 bolus Per protocol; to be given as a bolus over 60 br2 minutes Route: IV; Rate: 1 bolus; Site: left hand; 03:30 Follow up: IV Status: Completed infusion jj7 01:46 Drug: Ondansetron IVP 4 mg IVP once; over 2 minutes Route: IVP; Site: left hand; br2 03:15 Follow up: Response: Nausea is decreased jj7 01:46 Drug: morphine IVP or IV 2 mg IVP once over 4 mins Route: IVP; Infused Over: 4 mins; br2 Site: left hand; 03:15 Follow up: Response: Pain is decreased jj7 02:58 Drug: tranexamic acid 1000 mg IV at calculated rate once; administer at a rate not to jj7 exceed 100 mg per min Route: IV; Rate: calculated rate; Site: left hand; 03:08 Follow up: IV Status: Completed infusion jj7 03:15 Drug: morphine IVP or IV 4 mg IVP once over 4 mins Route: IVP; Infused Over: 4 mins; jj7 Site: left wrist; 04:30 Follow up: Response: Marked relief of symptoms; Pain is decreased jj7 03:15 Drug: Ketorolac IVP 30 mg IVP once Route: IVP; Site: left hand; jj7 04:30 Follow up: Response: Marked relief of symptoms; Pain is decreased jj7 04:25 Drug: NS 0.9% IV 1000 ml IV at 1000 ml once; to be given as a bolus over 60 minutes jj7 Route: IV; Rate: 1000 ml; Site: left wrist; 06:21 Follow up: IV Status: Completed infusion jj7 06:21 Not Given (Physician Discretion): methylergonovine0.2 mg PO once jj7 06:21 Drug: Oxytocin IM 10 units IM once Route: IM; Site: right deltoid; jj7 06:21 Follow up: Response: No adverse reaction jj7 Disposition Summary: 07/05/24 05:44 Transfer Ordered Notes: Transfer Location: [facility]-System sp4 Reason: Higher level of care sp4 Condition: Stable sp4 Problem: new sp4 Symptoms: have improved sp4 Accepting Physician: Dr. Ambrocio [facility] (07/05/24 06:26) jj7 Diagnosis - Incomplete spontaneous with other complications sp4 - Uterine hemorrhage sp4 Forms: - Medication Reconciliation Form sp4 - SBAR form sp4 Signatures: Dispatcher [employer] EDNgozi Geiger RN RN jj7 Christian Porter MD MD sp4 Esthela Willson RN RN br2 Corrections: (The following items were deleted from the chart) 01:56 01:56 Test, Urine+UC.LAB.BRZ ordered. EDMS EDMS 01:56 01:56 Urinalysis W/Microscopic+U.LAB.BRZ ordered. EDMS EDMS 01:57 01:57 CBC+H.LAB.BRZ ordered. EDMS EDMS 01:57 01:57 COMPREHENSIVE METABOLIC PANEL+C.LAB.BRZ ordered. EDMS EDMS 01:57 01:57 LIPASE+C.LAB.BRZ ordered. EDMS EDMS 01:57 01:57 OB Limited+US.RAD.BRZ ordered. EDMS EDMS 01:57 01:57 PROTIME (+INR)+COAG.LAB.BRZ ordered. EDMS EDMS 01:57 01:57 TYPE AND SCREEN+BB.LAB.BRZ ordered. EDMS EDMS 03:07 01:57 ABO/RH TYPING+BB.LAB.BRZ ordered. EDMS EDMS 05:10 04:31 ED course: EXAM: XR Chest, 1 View CLINICAL HISTORY: The patient is 82 years old sp4 and is Male; ABDOMINAL DISTENTION TECHNIQUE: Frontal view of the chest. COMPARISON: No relevant prior studies available. FINDINGS: Lungs: Mild hazy bibasilar opacification. Pleural space: Blunting of the costophrenic angles suggestive of bilateral pleural effusions. No pneumothorax. Heart: Dextrocardia. Mediastinum: Unremarkable. Normal mediastinal contour. Bones/joints: No acute findings. IMPRESSION: 1. Blunting of the costophrenic angles suggestive of bilateral pleural effusions. 2. Mild hazy bibasilar opacification. Electronically signed by: Gadiel Johnson MD 07/05/2024. sp4 05:23 05:23 CBC without Diff+H.LAB.BRZ ordered. EDMS EDMS 06:26 05:44 Dr. Ambrocio [facility] sp4 jj7
[2024-07-05] MEDS ORDERED: OXYTOCIN 10 UNIT/ML ML ONE (06:13)
[2024-07-05 06:25] LABS: Hematocrit 32.9 % (36.0-45.0); Hemoglobin 11.2 g/dL (12.0-15.0); MCH 29.3 pg (27.0-35.0); MCHC 34.1 g/dL (32.0-36.0); MCV 85.7 fL (80-100); MPV 8.8 fL (7.6-11.3); Platelets 225 thou/uL (152-406); RBC Red Blood Cell Count 3.84 M/uL (3.86-4.86); Red Cell Distribution Width 13.3 % (12.1-15.2)
[2024-07-05 06:34] VITALS: TEMP 97.6
[2024-07-05 06:38] VITALS: BP 103/61; O2SAT 100
--- NOTE | 2024-07-05 06:47 | RAD REPORT ---
EXAM: US First Trimester , Transabdominal and Transvaginal and US Duplex Arterial/Venous o f the Pelvis, Complete CLINICAL HISTORY: The patient is 23 years old and is Female; Abdomen pain, heavy vaginal bleeding. 10 weeks by history TECHNIQUE: Real-time transabdominal and transvaginal obstetrical ultrasound of the maternal pelvis and a first trimester with image documentation. Transvaginal imaging was used for better evaluation of the fetus and adnexa. Real-time duplex ultrasound scan of the arterial and mehran ous flow of the pelvis with color Doppler flow and spectral waveform analysis. COMPARISON: No relevant prior studies available. FINDINGS: Gestation: No intrauterine gestational sac, yolk sac or pole. Placenta/amniotic fluid: Cannot be adequately evaluated due to the early gestational age. Uterus/cervix: Thickened endometrium with heterogeneous echogenicity, 2.3 cm. Uterus is 10.0 x 4.5 x 6.6 cm. No myometrial mass. Right ovary: Right ovary 2.1 x 1.7 x 1.6 cm. No torsion. Left ovary: Left ovary 1.8 x 1.8 x 1.4 cm. No torsion. Free fluid: No free fluid. IMPRESSION: No intrauterine . Thickened endometrium with heterogeneous echogenicity, 2.3 cm. Based on the history provided, the findings are consistent with spontaneous miscarriage in progress. Clinical correlation with serial quantitative hCG levels and follow-up ultrasound recommended. Electronically signed by: Melanie Waller MD 07/05/2024 04:37 AM [facility] V2 Due to temporary technical issues with the PACS/GT Channel reporting system, reports are being neo d by the in-house radiologist without review as a courtesy to ensure prompt reporting the interpreting radiologist is fully responsible for the content of the report. Transcribed Date/Time: 07/05/2024 6:46 AM
== END 2024-07-05 06:26 | disposition short-term general hospital (02) ==
LOC: ER 00:33
DX: O03.4 Incomplete spontaneous abortion without complication (principal)
CPT/HCPCS: 85025; 36415; 86900; 86850; 85610; 86901; 84702; 85027; 83690; 80053; 76817; 96372; 99285; J2590; J2270; J2405; J7030 ×2